=== PATIENT | female | born 1950 | race Caucasian/White ===

== ENCOUNTER → 2017-11-11 00:39 | Outpatient (CLI) | payer OTHER, SELFPAY ==
--- NOTE | 2017-11-11 13:08 | DI.REPORT_ITS ---
SYMPTOMS/DIAGNOSIS: SCREENING, Z12.31 MAMMOGRAMS: Mammograms were interpreted according to the usual protocol including computer analysis with CAD system, tomosynthesis and C view imaging. Comparison is with the prior examinations. No masses or microcalcifications are seen. There is nothing to suggest malignancy. IMPRESSION: Negative mammogram. Routine screening is recommended. Category 1 , breast density C. MQSA ASSESSMENT OF FINDINGS: Negative. Category 1. Patient will receive a letter notifying them of these results. Bi-RADS category C. The breasts are heterogeneously dense, which may obscure small masses.
--- NOTE | 2017-11-11 13:56 | DI.REPORT_ITS ---
SYMPTOMS/DIAGNOSIS: MENOPAUSE, Z78.0 DEXA SCAN: Routine examination. The lateral view of the spine shows no compression deformities. Evaluation of the left hip shows a total T score of -0.9 and a Z score of 0.4. Evaluation of the lumbar spine shows a total T score of -0.2 and a Z score of 1.7; these are within normal limits. No evidence of osteoporosis or osteopenia is present. IMPRESSION: No evidence of osteoporosis.
== END ==
PROVIDERS: PCP Family Medicine; Visit Provider Family Medicine
DX: Z13.820 Encounter for screening for osteoporosis (principal); Z78.0 Asymptomatic menopausal state; Z12.31 Encounter for screening mammogram for malignant neoplasm of breast
CPT/HCPCS: 77063; 77067; 77080

== ENCOUNTER 2018-07-06 09:53 | Outpatient (CLI) | payer OTHER, SELFPAY ==
--- NOTE | 2018-07-06 09:39 | DI.RAD_ITS ---
SYMPTOMS/DIAGNOSIS: F/U RIGHT TOTAL KNEE ARTHROPLASTY; LEFT KNEE PAIN, RIGHT KNEE: Two views were obtained and show total knee joint replacement in position. Components appear well seated. No other bony abnormality seen. LEFT KNEE: Three views were obtained. There is narrowing of the medial tibiofemoral cartilaginous joint space. Marked narrowing of the patellofemoral cartilaginous joint space noted as well. There are very prominent hypertrophic changes of the bones of the knee on a degenerative basis. CONCLUSION: Severe DJD of the knee.
== END 2018-07-06 10:13 ==
PROVIDERS: PCP Family Medicine; Visit Provider Student in an Organized Health Care Education/Training Program
DX: M25.562 Pain in left knee (principal); M17.12 Unilateral primary osteoarthritis, left knee; Z96.651 Presence of right artificial knee joint
CPT/HCPCS: 73562; 73560

== ENCOUNTER 2019-06-28 16:58 | Emergency (ER) | payer OTHER, SELFPAY ==
--- NOTE | 2019-06-28 17:00 | ED.GENADUL_ITS ---
Discharge Plan Disposition Patient Disposition: HOME Condition: Good Discharge Details Chief Complaint: Vascular Clinical Impression: Bilateral pulmonary embolism, Acute deep vein thrombosis (DVT) of left lower extremity Primary Care Provider: Edelmira Lara ED Provider: Nazia Rodriguez Home Meds and New Rx's Prescriptions: New Eliquis 5 mg tablet 5 mg PO BID Qty: 60 RF: 0 Continued multivitamin [Daily Multi-Vitamin] 1 EACH tablet 1 ea PO DAILY RF: 0 Emergen-C 1,000 mg Powder Effervescent In Packet 1 mg PO DAILY RF: 0 cholecalciferol (vitamin D3) [Vitamin D3] 25 mcg (1,000 unit) Tablet,Chewable 1 unit PO DAILY RF: 0 Discontinued aspirin [Aspir-81] 81 MG tablet,delayed release (DR/EC) 81 mg PO DAILY RF: 0 Discharge Instructions Instructions: Apixaban (By mouth), Pulmonary Embolism (GEN), Deep Venous Thrombosis (ED) Additional Instructions: You have bilateral pulmonary emboli. You need to be anticoagulated on Eliquis. You will receive tonight's dosing. You have been given dosing for tomorrow morning. You will need to take of the remaining of the prescription follow as instructed. Please do not take anti-inflammatories while on the anticoagulation medication. Please contact your primary care first thing tomorrow morning to schedule follow-up appointment soon as possible. I have ordered an outpatient echocardiogram as well as left lower extremity DVT study. We have discussed risks and/or benefits of inpatient versus outpatient treatment. You are to monitor closely at home for any new or worsening symptoms and seek care urgently if you develop shortness of breath, difficulty breathing, chest pain, weakness, strokelike symptoms, or other new/worsening symptoms. Referrals: Edelmira Lara [Primary Care Provider] - Discharge Data Discharge Date/Time-TO BE ENTERED AT DEPARTURE: 06/28/19 22:25 Medical Decision Making Patient is a pleasant 69-year-old female presenting today with chief complaint of left lower extremity pain x4 days and cough x1 month. She states that she has had a URI x 1 month. Was concerned that she may have developed pneumonia based on the length of symptoms. She states that throughout this time, she has been having dyspnea with exertion. However, in recent days this has been improving. reports T max of 100.4*F 3 days ago. No fever today. Denies any CP. States that cough has been nonproductive. Denies recent travel, no known sick contacts. Symptoms have been persistnet without any gaps. Patients left lateral foot began bothering her 4 days ago after period of being sedentary. She finds that prolonged sitting makes symptoms worse and they are alleviated by movement. She states that the pain has now radiated up the posterior aspect of the LLE into the medial thigh. Denies trauma. Denies opening in the skin. On exam, patient has normal HEENT exam, lungs are clear. No abnormalities noted on cardiac exam. LLE is slightly swollen circumfrentially. No edema. 2+ distal pulses. She has no discomfort elicited on exam. No erythema, warmth. No palpable cord. Patients lower extremity exam has me concerned for DVT although she her history is not typical. At this time, unable to obtain US, will screen with d-dimer. Her URI symptoms sound to be improving. As this has been going on for over one month, will obtain cxr. FINDINGS: Lungs: The lungs appears slightly expanded. No consolidation is seen. Pleural space: Unremarkable. No pleural effusion. No pneumothorax. Heart/Mediastinum: Unremarkable. No cardiomegaly. Bones/joints: Left acromioclavicular joint degenerative changes are noted. IMPRESSION: Slightly expanded lung bernal without evidence of consolidation. Patient's d-dimer is notably elevated over 7500. I am questioning now if this patient's cough and shortness of breath that is been ongoing for the past month may in fact be related to an embolus and not URI with subsequent DVT in the left lower extremity. I do feel that CT for PE would be appropriate. Consulted with radiologist regarding patients CT, she notes bilateral significant PE. Discussed this with the patient. She is now reporting that she is familial history of MTHFR gene mutation although she has never personally had DVT or PE. EKG was reviewed by Dr. Chopra. This is concerning for poor R wave progression which may be associate with the patient's known PE. Patient is otherwise normal sinus rhythm with a rate of 72. Initially, without the EKG, I had been considering this patient home based on Hestia criteria. However, with this EKG change, I am concerned that she may need inpatient management. Discussed with patient inpatient versus outpatient admission particularly as we are now seeing patients with COVID in the community and she is concern for possible exposure. She does live locally and is able to return urgently if she has worsening symptoms. We will begin the patient on Eliquis. Plan to obtain troponin and reassess what patient's preferences at this time for inpatient admission versus discharge with prompt follow-up. Initial troponin is less than 0.05. Symptoms have been going on for a month. Do not feel that repeat is necessary. Will consult with hospitalist regarding possible admission versus outpatient therapy. Patient has received 10 mg of Eliquis. Consulted with Dr. Monte. We discussed again the patients dilema of inpatient vs. outpatient management. He advised that as we are likely able to get outpatient echo and LLE DVT study soon, and as there is no hemodynamic instability of the patient, she could be treated as an outpatient. At this point, he advised that inpatient management would not change the current plan. Discussed this again with [facility] patient. I am concerned and advised that typically we would be requesting inpatient management. However, given the current state of affairs patient prefers discharge. She lives locally, is very reassonable, responsible and has good insight. She was given dosing for Eliquis tonight, will be discharged home with morning dosing. I have asked for prompt outpatient echo and LLE DVT US. Have asked the patient to call PCP tomorrow morning to schedule follow up appointment as soon as possible. Shew as given very strict return precautions. All of her questions and concerns were addressed, she is in agreement with this plan. HPI General Mode of arrival: ambulatory . Date/Time Provider Initiated Documentation: 06/28/19 16:59 . Limitations to Documentation: no limitations . Information obtained by: patient and RN notes reviewed . History of Present Illness 69 year old F presents to the emergency department with the chief complaint of left lower extremity pain, URI symptoms, described as moderate, Quality is described as aching, and is localized to the left and lower extremity. Patient reports no radiation. Patient started experiencing this day(s) (LLE pain began 4 days ago, URI began 1 month ago) and it has been constant. Movement improves symptom(s), Immoblization worsens symptoms . Patient notes cough, fever/chills (t max 100.4 2 days ago) and shortness of breath (with exertion, improving recently); denies chest pain, headaches, loss of appetite, nausea/vomiting, rash and weakness. Patient did receive the following treatments prior to arrival, none Related Data Home Medications Medication Instructions Recorded Confirmed multivitamin [Daily Multi-Vitamin] 1 ea PO DAILY 07/06/15 06/28/19 Emergen-C 1 mg PO DAILY 06/28/19 06/28/19 apixaban [Eliquis] 5 mg PO BID #60 tab 06/28/19 cholecalciferol (vitamin D3) 1 unit PO DAILY 06/28/19 06/28/19 [Vitamin D3] Previous Rx's Medication Instructions Recorded apixaban [Eliquis] 5 mg PO BID #60 tab 06/28/19 Allergies Allergy/AdvReac Type Severity Reaction Status Date / Time No Known Allergies Allergy Unverified 06/28/19 17:27 Review of Systems Constitutional Constitutional: Reports as per HPI, Reports fatigue, Reports fever(s) and Denies headache(s) Eyes Eyes: Reports as per HPI, Denies eye discharge and Denies irritation ENT Ears, Nose, Mouth, and Throat: Reports as per HPI and Denies headache(s) Cardiovascular Cardiovascular: Reports as per HPI, Denies chest pain, Denies chest pain at rest, Denies chest pain with activity, Denies syncope, Denies edema, Reports leg edema, Denies lightheadedness, Denies radiating jaw, neck or arm pain, Denies dyspnea, Reports dyspnea on exertion, Denies orthopnea and Denies paroxysmal nocturnal dyspnea Respiratory Respiratory: Reports as per HPI, Denies chest congestion, Reports cough, Denies hemoptysis, Denies pain on inspiration, Denies pain with cough, Denies dyspnea, Reports dyspnea on exertion and Denies wheezing Gastrointestinal Gastrointestinal: Reports as per HPI, Denies abdominal pain, Denies change in bowel habits, Denies nausea and Denies vomiting Integumentary/Breasts Skin/Breast: Reports as per HPI and Denies rash Neurologic Neurologic: Reports as per HPI, Denies syncope and Denies headache(s) Endocrine Endocrine: Reports fatigue Allergic/Immunologic Allergic/Immunologic: Denies wheezing PFSH Social History Smoking/Tobacco Use Status: Never Alcohol Intake: never Drug use: Never Substance use type: does not use Do you feel safe at home: Yes Do you feel safe in your relationship?: Yes Exam Const General: cooperative, healthy appearing, comfortable, no acute distress, well developed and well groomed Nutritional Appearance: average body habitus and well nourished Orientation: alert and awake [facility] Head: normal to inspection, normocephalic and atraumatic Ears: hearing grossly normal bilaterally, external ears normal and TM's normal bilaterally General nose exam: external nose normal and nares normal Face and sinus: normal facial exam, sinuses nontender and face symmetric Mouth: oral mucosae normal, lip normal, tongue normal, oropharynx normal and moist mucous membranes Teeth and gingiva: dentition normal Throat: posterior oropharynx normal, tonsils normal and uvula midline Eyes General: appearance normal, both eyes and all related structures Neck Neck: normal visual inspection, full ROM, no lymphadenopathy and no meningeal signs Resp Effort & Inspection: normal respiratory effort, able to speak in complete sentences and no respiratory distress Auscultation: clear to auscultation bilaterally, no rales, no rhonchi and no wheezes Cardio Rate: regular rate Rhythm: regular rhythm Heart Sounds: S1 normal and S2 normal GI Inspection: normal to inspection Palpation: soft, no hepatosplenomegaly, not rigid and nontender Skin General skin exam: no rashes or lesions noted Neuro General: patient alert and patient awake Cognition: normal cognition Speech: speech normal Gait: normal gait Extrem General: full ROM, capillary refill normal, no pedal edema, no calf tenderness, normal gait and other (2+ distal pulses, generalized swelling of LLE compared to contralateral baldev) Psych Appearance: grossly normal and well kempt Mental Status: mental status grossly normal Speech and Movement: speech and movement normal
[2019-06-28 17:17] VITALS: BP 150/93; PULSE 86; RESP 16; O2SAT 98
--- NOTE | 2019-06-28 17:45 | DI.RAD_ITS ---
EXAM: CT CHEST PE CTA CLINICAL HISTORY: elevated d-dimer, SOB, elevated dimer TECHNIQUE: Axial CT angiography was performed with multi-slice acquisition and multi-planar and/or 3 D reconstructions. COMPARISON: XR PORTABLE CHEST AP from 06/28/2019 FINDINGS: CT angiography of the chest and portable AP chest were obtained. The portable film of the chest show s cardiac size at the upper limits of and generally clear lungs. CTA was performed with intravenous infusion of 80 cc of Omnipaque 350. Images obtained through the u pper abdomen show a 24 millimeter in diameter rounded homogeneous right adrenal mass measuring 0-5 Ho unsfield units average, consistent with benign process. Visualized liver and spleen are unremarkable . There are multiple pulmonary emboli involving predominantly lower lobe pulmonary arteries and also di stal right main pulmonary artery and right middle lobe pulmonary artery. Vaguely nodular pleural bas ed opacities noted at the right lung base, these may represent small pulmonary infarcts, other etiolo gies not excluded including infectious or neoplastic process. Follow-up chest CT requested following treatment to document the resolution of these areas of pulmonary abnormality. Otherwise lungs appear clear with mild mosaic attenuation. No mediastinal or hilar adenopathy. Trac heobronchial tree appears intact. IMPRESSION: Bilateral pulmonary embolic disease with moderate clot burden, suspect peripheral pulmonary infarcts right lung base. Follow-up chest CT requested to exclude underlying disease including neoplastic pro cess.
[2019-06-28 18:16] LABS: Abs Immature Grans 0.02 k/cumm (0.0-0.09); Absolute Basophil Count 0.01 k/cumm (0.0-0.2); Absolute Lymphocyte Count 2.09 k/cumm (1.2-3.4); Absolute Neutrophil Count 7.84 k/cumm (1.2-6.7); Basophils % 0.1; Eosinophils % 0.9; HCT 37.3 % (36.0-46.0); HGB 12.7 g/dL (12.0-15.5); Immature Grans % 0.2 %; Lymphocytes % 19.2; Mean Corpuscular Volume 85.2 fL (80-95); Mean Platelet Volume 9.4 fL (8.0-11.0); Monocytes % 7.5; Neutrophils % 72.1; Platelet Count 217 x1000/uL (130-400); RBC 4.38 m/cumm (4.00-5.20); RBC Distribution Width 13.3 % (11.7-14.6); White Blood Cell Count 10.87 k/cumm (4.4-10.8)
[2019-06-28 18:17] LABS: Absolute Monocyte Count 0.82 k/cumm (0.11-0.7)
--- NOTE | 2019-06-28 18:26 | DI.VRAD_ITS ---
PROCEDURE INFORMATION: Exam: XR Chest, 1 View Exam date and time: 06/28/2019 6:16 PM Age: 69 years old Clinical indication: Patient HX: Cough x 1 month TECHNIQUE: Imaging protocol: XR of the chest Views: 1 view. COMPARISON: CR CHEST 2 VIEWS PA,LAT 07/03/2014 3:54 PM FINDINGS: Lungs: The lungs appears slightly expanded. No consolidation is seen. Pleural space: Unremarkable. No pleural effusion. No pneumothorax. Heart/Mediastinum: Unremarkable. No cardiomegaly. Bones/joints: Left acromioclavicular joint degenerative changes are noted. IMPRESSION: Slightly expanded lung bernal without evidence of consolidation. Dictated and Authenticated by: Susanne Sharma MD. Ordering:JOSE Mandujano MD
[2019-06-28 18:29] LABS: INR 1.1 (0.9-1.1); PTT Activated 25.2 sec (21.0-31.4); Prothrombin Time 10.9 sec (9.3-11.0)
[2019-06-28 18:32] LABS: ALT 20 U/L (14-59); AST 14 U/L (15-37); Albumin 3.5 g/dL (3.4-5.0); Alkaline Phosphatase 77 U/L (46-116); Anion Gap 8.6 mmol/L (3-11); BUN 15 mg/dL (7-18); Bilirubin, Total 0.5 mg/dL (0.2-1.0); CO2 27.4 mmol/L (21.0-32.0); CREATININE 0.84 mg/dL (0.55-1.02); Calcium 8.7 mg/dL (8.5-10.1); Chloride 100 mmol/L (98-107); Glucose 109 mg/dL (74-106); Potassium 3.8 mmol/L (3.5-5.1); Sodium 136 mmol/L (136-145); Total Protein 7.6 g/dL (6.4-8.2)
[2019-06-28 18:46] LABS: D-Dimer > 7500 ng/mlFEU (<500)
[2019-06-28] MEDS: Omnipaque 350 MG/ML 100 ML BTL IJ (19:41)
[2019-06-28] MEDS: Normal Saline 1,000 ML 1000 ML IV (20:14)
--- NOTE | 2019-06-28 20:35 | DI.VRAD_ITS ---
PROCEDURE INFORMATION: Exam: CT Angiography Chest With Contrast Exam date and time: 06/28/2019 7:56 PM Age: 69 years old Clinical indication: Abnormal findings; Abnormal diagnostic tests; Elevated d-dimer; Shortness of breath; Patient HX: Elevated d dimer, SOB TECHNIQUE: Imaging protocol: Computed tomographic angiography of the chest with intravenous contrast. 3D rendering: MIP and/or 3D reconstructed images were created by the technologist. COMPARISON: CR XR PORTABLE CHEST AP 06/28/2019 6:08 PM FINDINGS: Pulmonary arteries: There are filling defects seen in the distal right main pulmonary artery and extending into the upper and lower lobe branches. Filling defects are also seen in the left lower lobe pulmonary arterial branches. Aorta: Unremarkable. No aortic aneurysm. No aortic dissection. Thyroid: Hypodense nodules are seen in the bilateral thyroid glands measuring up to 1.2 cm on the right. Lungs: A 1.5 cm nodular opacity is seen in the right lung base. There is a mosaic attenuation of the lung bernal, which may be related to pulmonary emboli. Pleural space: Unremarkable. No pneumothorax. No pleural effusion. Heart: Unremarkable. No cardiomegaly. No pericardial effusion. Adrenals: A 2.4 cm hypodense nodule is seen in the right adrenal gland, which may represent an adrenal adenoma. Lymph nodes: Unremarkable. No enlarged lymph nodes. Bones/joints: Unremarkable. No acute fracture. Soft tissues: Unremarkable. IMPRESSION: 1. Extensive bilateral pulmonary emboli predominantly on the right and involving the distal main right pulmonary artery. 2. 1.5 cm nodular opacity in the right lung base could be secondary to a pulmonary parenchymal infarct. However malignancy is not excluded. Correlate with prior imaging and close interval follow-up. 3. 2.4 cm hypodense nodule in the right adrenal gland may represent an adrenal adenoma. THIS REPORT CONTAINS FINDINGS THAT MAY BE CRITICAL TO PATIENT CARE. The findings were verbally communicated via telephone conference with SANKET SMITH at 8:16 PM EDT on 06/28/2019. The findings were acknowledged and understood. Dictated and Authenticated by: Susanne Sharma MD. Ordering:JOSE Mandujano MD
[2019-06-28 21:09] LABS: Troponin I < 0.05 ng/Ml (<0.06)
[2019-06-28] MEDS: Apixaban 5 MG TAB 10 MG PO ×2 (21:23→22:00)
== END 2019-06-28 22:25 | disposition home or self-care (01) ==
LOC: ER 22:10
PROVIDERS: Emergency Provider Physician Assistant; PCP Family Medicine
DX: I26.99 Other pulmonary embolism without acute cor pulmonale (principal); I82.402 Acute embolism and thrombosis of unspecified deep veins of left lower extremity; R05 Cough; R06.02 Shortness of breath
CPT/HCPCS: 36415; 71275; 80053; 93005; 96360; 99285; 71045; 84484; 85025; 85379; 85610; 85730; 93010; 99284; J3490

== ENCOUNTER 2019-06-29 08:42 | Outpatient (CLI) | payer OTHER, SELFPAY ==
--- NOTE | 2019-06-29 | DI.US_ITS ---
EXAM: US LOWER EXTREMITY VENOUS LT CLINICAL HISTORY: LT LEG SWELLING, BILAT PE TECHNIQUE: Ultrasound performed using standard protocol. COMPARISON: US ECHOCARDIOGRAM from 06/29/2019 FINDINGS: Duplex venous ultrasound left lower extremity was performed according to the usual protocol. There i s visible thrombus and noncompressibility indicating DVT of the mid left femoral vein through the dis linda posterior tibial vein. IMPRESSION: Occlusive left DVT from level of mid thigh through the distal calf. DATA REPOSITORY:
--- NOTE | 2019-06-29 10:01 | DI.US_ITS ---
APPROVED REPORT EXAM: Comprehensive 2D, Doppler, and color-flow Echocardiogram Patient Location: Out-Patient [facility] Raiser: Anahi Randhawa RDCS (AE) Indications: Abnormal EKG, PE Conclusion Left Ventricle : The left ventricle is normal size. The left ventricular systolic function is normal. The left ventricular ejection fraction is within the normal range. There is normal left ventricular wall thickness. There is normal LV segmental wall motion. The left ventricular diastolic function is normal. LVEF is 55-60%. Right Ventricle : The right ventricle is normal size. The right ventricular systolic function is norm al. There is no evidence of RV pressure overload. Atria : The left atrium size is normal. The right atrium size is normal. Great Vessels : IVC is normal in size and collapses >50% with inspiration. Not enough tricuspid regu rgitation to estimate RVSP. Please see remainder of exam for further details. There are no prior studies available for comparison. Wall motion Left Ventricle The left ventricle is normal size. The left ventricular systolic function is normal. The left ventric ular ejection fraction is within the normal range. There is normal left ventricular wall thickness. T here is normal LV segmental wall motion. The left ventricular diastolic function is normal. There is no ventricular septal defect visualized. LVEF is 55-60%. Right Ventricle The right ventricle is normal size. The right ventricular systolic function is normal. Atria The left atrium size is normal. The right atrium size is normal. The interatrial septum is intact wit h no evidence for an atrial septal defect. Aortic Valve The aortic valve is normal in structure. Aortic valve is trileaflet. There is no aortic valvular sten osis. Trace aortic regurgitation. Mitral Valve The mitral valve is normal in structure. No evidence of mitral valve stenosis. Trace mitral regurgita tion. Tricuspid Valve The tricuspid valve is normal in structure. There is no tricuspid valve stenosis. Trace tricuspid reg urgitation. Pulmonic Valve The pulmonary valve is normal in structure. There is no pulmonic valvular stenosis. There is no pulmo krystian valvular regurgitation. Great Vessels The aortic root is normal in size. The pulmonary artery is normal. Ascending aorta is mildly enlarged . Aortic arch is normal in caliber. IVC is normal in size and collapses >50% with inspiration. Not en ough tricuspid regurgitation to estimate RVSP. Pericardium There is no pericardial effusion. There is no pleural effusion. 2D Dimensions IVSD d PLAX 0.99 cm F: 0.6-1.0 LV Vol A2C d MOD 121.5 mL LVPW d PLAX 0.90 cm F: 0.6 - 1.0 LV Vol A4C d MOD 110.7 mL LVID d PLAX 4.29 cm F: 3.8 - 5.2 LA vol/ BSA A2C s A-L 33.9 mL/m2 LVDs 3.00 cm F: 2.2 - 3.5 LA vol/ BSA A4C s A-L 32.4 mL/m2 Ao Root d 2.59 cm F: 2.7 - 3.3 LA Vol/ BSA Biplane s A-L 33.8 mL/m2 RA Area A4C 19.59 cm2 LA Area A4C s MOD 21.53 cm2 RA Vol/ BSA A4C s A-L 31.3 mL/m2 LA Area A2C s MOD 21.60 cm2 Ao Asc Diam d 3.74 cm F: 2.3 - 3.1 LV EF A4C MOD 55.2 % LV EF Teichholz 57.1 % LV EF A2C MOD 58.7 % LVEF (Gordillo's) 55.84 % F: 54 - 74 LV EF Biplane MOD 55.8 % LV Volume 87.41 mL F: 46 - 106 LV Volume Index 43.70 mL/m2 F: 29 - 61 LV Vol Biplane MOD 116.5 mL FS 29.70 % M-Mode TAPSE 1.90 cm (M/F) <1.7 LV Diastology MV E' medial 0.114 (>0.07 m/s) E/A Ratio 1.0 LV E/e MED 5.25 (<14) MV E Vmax 0.61 (0.4-1.3 m/s) MV E' lateral 0.114 (>0.1 m/s) MV A Vmax 0.60 (0.4-1.3 m/s) LV E/e LAT 5.25 (<14) MV E/A Ratio 0.96 MV E/E' medial 5.30 MV E/E' lateral 5.30 Aortic Valve LVOT Area 3.73 cm2 AoV Area Vmax 2.73 cm2 LVOT Vmax 1.15 m/s AoV Area/ BSA (Vmax) 1.36 cm2/m2 LVOT Mean Ángel. 0.79 m/s CARSON Mean Ángel. 2.30 cm2 LVOT Peak Grad 5.3 mmHg CARSON Mean Ángel. Index 1.15 cm2/m2 LVOT Mean Grad 2.8 mmHg AR DT 1248 msec LVOT VTI 0.219 m AR PHT 362 msec LVOT Diam s 2.15 cm (M/F) 1.5-2.5 AoV Vmax 1.57 (0.5-1.3 m/s) Velocity Ratio 0.73 AoV Mean Ángel. 1.27 m/s AoV Peak Grad 9.9 mmHg LVOT SV 81.62 mL AoV Mean Grad 6.9 (<5 mmHg) AoV VTI 0.333 (0.18-0.25 m) AoV Area VTI 2.45 (2.5-4.5 cm2) AoV Area/ BSA (VTI) 1.23 cm/m2 Mitral Valve MV DT 286 (160-240 msec) MV PHT 83 msec MV Area PHT 2.65 cm2 MV VTI 0.204 m MV Area VTI 4.00 (4.0-6.0 cm2) Pulmonary Valve PV Vmax 1.15 (0.5-1.5 m/s) RVOT Peak Gr. 2.19 mmHg PV Peak Grad 5.3 mmHg RVOT Mean Gr. 1.15 mmHg PV Mean Grad 2.9 mmHg RVOT VTI 0.167 m PV VTI 0.231 m RVOT Vmax 0.74 m/s
== END 2019-06-29 09:02 ==
PROVIDERS: PCP Family Medicine; Visit Provider Physician Assistant
DX: R22.42 Localized swelling, mass and lump, left lower limb (principal); I82.412 Acute embolism and thrombosis of left femoral vein; I82.442 Acute embolism and thrombosis of left tibial vein; R94.31 Abnormal electrocardiogram [ECG] [EKG]
CPT/HCPCS: 93306; 93971

== ENCOUNTER 2019-07-16 06:44 | Inpatient (IN) | payer OTHER, SELFPAY ==
[2019-07-16] VITALS (27 sets, daily range): BP systolic 157–199; BP diastolic 71–98; PULSE 52–85; RESP 7–27; TEMP 36.6–37; O2SAT 95–100
--- NOTE | 2019-07-16 06:58 | ED.GENADUL_ITS ---
Discharge Plan Disposition Patient Disposition: [facility] INPATIENT Condition: Stable Discharge Details Chief Complaint: Abd Prob Clinical Impression: Small bowel obstruction Admit Date/Time: 07/16/19 08:56 Admit Provider: Tamika Slade Attending Provider: Tamika Slade Primary Care Provider: Edelmira Lara ED Provider: Lorene Holland Discharge Data Discharge Date/Time-TO BE ENTERED AT DEPARTURE: 07/16/19 09:45 Medical Decision Making <Javi Robins DO - Last Filed: 07/17/19 06:48> Pleasant 69-year-old female who was recently diagnosed with bilateral PEs last month, is currently on Eliquis, who presents today for evaluation of abdominal pain that started slightly less than 12 hours ago. Pain is crampy in nature, worse in the epigastric region. She has had associated vomiting and retching. She denies blood in her stool or emesis. She has no previous abdominal surgeries. She denies any tearing or ripping or chest sensation. Physical exam demonstrates a notably diffusely tender abdomen, worse in the epigastric regions, no pulsatile mass, lower extremity pulses and capillary refill are notably benign and normal. Differential is highest for cholecystitis, pancreatitis, less likely cardiac etiology or vascular etiology. Due to the patient's symptoms we will get a CT scan of the chest and abdomen, rehydrate, control her pain, monitor closely. Case will be signed out to my col league Dr. Lorene Holland for reassessment after imaging and labs. EKG 7: 10 Rate 55, ME 166, QTc 42, QRS 96, sinus bradycardia, no significant ST elevations or depressions, no evidence of STEMI. <Lorene Holland DO - Last Filed: 07/16/19 14:45> 0800 --please see Dr. Robins's note for initial presentation, exam and plan. CT notes small bowel obstruction with dilated proximal small bowel loops. Pt reassessed --she is complaining of return of pain and nausea. She was dry heaving in the room. She has lower abdominal tenderness. Patient is agreeable to admission. We will give a dose of Dilaudid, Compazine, additional IV fluids and plan for NG tube. 0850 --Case discussed with Dr. Slade --accepts patient for admission. Medical Records Medical records reviewed: Yes I reviewed the patient's medical records. Imaging Data Radiologic Study: Radiologist's impression: CT CHEST/ABD/PEL W CLINICAL HISTORY: severe epigastric pain, vomit/wretching, known PE' TECHNIQUE: Axial CT angiography was performed with multi-slice acquisition and multi-planar and/or 3D reconstructions. FINDINGS: CT examination of the chest, abdomen, and pelvis was performed with a bolus infusion of 100 cc of Omnipaque 350. The patient had recent chest CT 06/28/2019 which showed multiple pulmonary emboli. On today's examination, there is no evidence of pulmonary embolus. The lungs are generally clear. Tracheobronchial tree appears intact. Minimal linear scarring noted in the lung bases. No pleural effusion. No mediastinal or hilar adenopathy. Unremarkable appearance of the thoracic aorta and major branches. There is a hepatic mass which was not appreciated on early phase arterial imaging on the prior examination, this measures about 5 cm in diameter and is of low attenuation with apparent early peripheral nodular enhancement, the findings are suggestive of hepatic hemangioma, other etiologies not excluded on the basis of this study alone. Follow-up multiphasic hepatic CT or MRI recommended to confirm this diagnosis. No biliary dilatation seen. Pancreas appears normal. Spleen appears normal. Small likely benign right adrenal mass again noted. Kidneys are unremarkable, no urinary tract calcification or obstruction. Abdominal aorta and major branches appear normal. Appendix is normal. No evidence of diverticulitis. [employer] structures unremarkable for age. No abdominal or pelvic adenopathy. There is marked proximal to mid small bowel dilatation with normal caliber of the small bowel distally, the findings are highly suggestive of a small bowel obstruction. A definitive transition point is not identified but I suspect transition point in the pelvis associated with a few thick walled loops of small bowel. No free air. Mild to moderate ascites noted. IMPRESSION: Findings highly suggestive of small-bowel obstruction as described above. No evidence of pulmonary embolic disease or other significant intrathoracic process. Incidental right lobe posterior segment hepatic mass, likely hemangioma, follow- up multiphasic hepatic CT recommended to confirm this diagnosis and exclude malignancy. Lab Data Lab results reviewed: Yes I reviewed the patient's lab results. Labs: Laboratory Tests Range/Units 07/16/19 07/16/19 07/16/19 06:58 06:58 06:58 WBC (4.4-10.8) k/cumm 13.16 H RBC (4.00-5.20) m/cumm 5.27 H Hgb (12.0-15.5) g/dL 15.0 Hct (36.0-46.0) % 43.5 MCV (80-95) fL 82.5 MCH (27.0-33.0) pg 28.5 MCHC (32.0-36.0) g/dL 34.5 RDW (11.7-14.6) % 13.8 Plt Count (130-400) x1000/uL 303 MPV (8.0-11.0) fL 9.7 Immature Gran % % 0.2 Neutrophils % 89.7 Lymphocytes % 8.4 Monocytes % 1.6 Eosinophils % 0.0 Basophils % 0.1 Absolute Neutrophils (1.2-6.7) k/cumm 11.80 H Absolute Lymphocytes (1.2-3.4) k/cumm 1.11 L Absolute Monocytes (0.11-0.7) k/cumm 0.21 Absolute Eosinophils (0.0-0.7) k/cumm 0.00 Absolute Basophils (0.0-0.2) k/cumm 0.01 PT (9.3-11.0) sec INR (0.9-1.1) APTT (21.0-31.4) sec Sodium (136-145) mmol/L 137 Potassium (3.5-5.1) mmol/L 3.4 L Chloride (98-107) mmol/L 98 Carbon Dioxide (21.0-32.0) mmol/L 23.8 Anion Gap (3-11) mmol/L 15.2 H BUN (7-18) mg/dL 15 Creatinine (0.55-1.02) mg/dL 0.95 Estimated GFR/1.73 m2 (mL/min/1.73m2) 58.50 Glucose (74-106) mg/dL 208 H Lactate (0.6-1.4) mmol/L 2.9 H* Calcium (8.5-10.1) mg/dL 9.6 Total Bilirubin (0.2-1.0) mg/dL 0.7 AST (15-37) U/L 21 ALT (14-59) U/L 27 Alkaline Phosphatase (46-116) U/L 77 Troponin I (<0.06) ng/Ml < 0.05 Total Protein (6.4-8.2) g/dL 8.5 H Albumin (3.4-5.0) g/dL 4.2 Lipase (73-393) U/L 133 Urine Color (Yellow) Urine Clarity (Clear) Urine pH (5-8) Ur Specific [place] (1.005-1.025) Urine Protein (Negative) mg/dL Urine Ketones (Negative) mg/dL Urine Blood (Negative) Urine Nitrite (Negative) Urine Bilirubin (Negative) Urine Urobilinogen (Up TO 0.2) EU/dL Ur Leukocyte Esterase (Negative) Urine RBC (0-2) HPF Urine WBC (0-5) HPF Ur Epithelial Cells (Negative) HPF Urine Crystals (Negative) HPF Urine Bacteria Urine Mucus Ur Culture Indicated? Urine Glucose (Negative) mg/dL Range/Units 07/16/19 07/16/19 06:58 08:20 WBC (4.4-10.8) k/cumm RBC (4.00-5.20) m/cumm Hgb (12.0-15.5) g/dL Hct (36.0-46.0) % MCV (80-95) fL MCH (27.0-33.0) pg MCHC (32.0-36.0) g/dL RDW (11.7-14.6) % Plt Count (130-400) x1000/uL MPV (8.0-11.0) fL Immature Gran % % Neutrophils % Lymphocytes % Monocytes % Eosinophils % Basophils % Absolute Neutrophils (1.2-6.7) k/cumm Absolute Lymphocytes (1.2-3.4) k/cumm Absolute Monocytes (0.11-0.7) k/cumm Absolute Eosinophils (0.0-0.7) k/cumm Absolute Basophils (0.0-0.2) k/cumm PT (9.3-11.0) sec 10.6 INR (0.9-1.1) 1.1 APTT (21.0-31.4) sec 22.6 Sodium (136-145) mmol/L Potassium (3.5-5.1) mmol/L Chloride (98-107) mmol/L Carbon Dioxide (21.0-32.0) mmol/L Anion Gap (3-11) mmol/L BUN (7-18) mg/dL Creatinine (0.55-1.02) mg/dL Estimated GFR/1.73 m2 (mL/min/1.73m2) Glucose (74-106) mg/dL Lactate (0.6-1.4) mmol/L Calcium (8.5-10.1) mg/dL Total Bilirubin (0.2-1.0) mg/dL AST (15-37) U/L ALT (14-59) U/L Alkaline Phosphatase (46-116) U/L Troponin I (<0.06) ng/Ml Total Protein (6.4-8.2) g/dL Albumin (3.4-5.0) g/dL Lipase (73-393) U/L Urine Color (Yellow) Yellow Urine Clarity (Clear) Clear Urine pH (5-8) 7.5 Ur Specific [place] (1.005-1.025) 1.020 Urine Protein (Negative) mg/dL Negative Urine Ketones (Negative) mg/dL 40 H Urine Blood (Negative) Trace-intact H Urine Nitrite (Negative) Negative Urine Bilirubin (Negative) Negative Urine Urobilinogen (Up TO 0.2) EU/dL 0.2 Ur Leukocyte Esterase (Negative) Negative Urine RBC (0-2) HPF 3-5 H Urine WBC (0-5) HPF 0-2 Ur Epithelial Cells (Negative) HPF Rare Urine Crystals (Negative) HPF Moderate amorphous Urine Bacteria Not Applicable Urine Mucus Not Applicable Ur Culture Indicated? No Urine Glucose (Negative) mg/dL Negative HPI <Javi Robins DO - Last Filed: 07/17/19 06:48> General Date/Time Provider Initiated Documentation: 07/16/19 06:46 . HPI Narrative: This is a pleasant 69-year-old female with a past medical history of recently diagnosed pulmonary emboli bilaterally, currently on Eliquis, who presents today for epigastric pain. Patient states that at 8 PM last night which was 11 hours ago, she developed gradual onset epigastric pain which she describes as crampy in nature. Started in the left upper quadrant, and radiated to the right upper quadrant, subsequently throughout the night she has had multiple episodes of vomiting, but denies any blood. She denies any diarrhea. She denies pain like this in the past. She denies any previous abdominal surgeries. No particular aggravating or relieving factors. She denies numbness tingling or weakness. She denies cardiac disease, chest pain, tearing sensation in the chest, chest heaviness, tightness, pressure or bandlike sensation. She denies any other complaints at this time. No other modifying factors. Related Data Home Medications Medication Instructions Recorded Confirmed multivitamin [Daily Multi-Vitamin] 1 ea PO DAILY 07/06/15 07/16/19 Emergen-C 1 mg PO DAILY 06/28/19 07/16/19 apixaban [Eliquis] 5 mg PO BID #60 tab 06/28/19 07/16/19 cholecalciferol (vitamin D3) 1 unit PO DAILY 06/28/19 07/16/19 [Vitamin D3] Previous Rx's Medication Instructions Recorded apixaban [Eliquis] 5 mg PO BID #60 tab 06/28/19 Allergies Allergy/AdvReac Type Severity Reaction Status Date / Time No Known Allergies Allergy Unverified 06/28/19 17:27 General INDIRA: 3 Review of Systems <Javi Robins DO - Last Filed: 07/17/19 06:48> All systems reviewed & are unremarkable except as noted in HPI and below PFSH <Javi Robins DO - Last Filed: 07/17/19 06:48> Medical History Acute deep vein thrombosis (DVT) of left lower extremity (Inactive) Femur fracture, right (Acute) Pulmonary embolism (Chronic) Surgical History Status post total right knee replacement (Inactive) 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 3.ENT: Atraumatic external nose and ears. Moist MM. Neck: Symmetric, trachea midline, No thyromegaly. 4.CVS: +S1/S2, No murmurs or gallops. Peripheral pulses 2+ and equal in all extremities. Brisk capillary refill in all extremities. Dorsalis pedis and posterior tibial pulses equal bilaterally. 5.RESP: Unlabored respiratory effort. Clear to auscultation bilaterally. No wheezes rales or rhonchi 6.GI: Soft,Nondistended, No hepatosplenomegaly. Mild voluntary guarding for palpation of the upper abdominal quadrants. No rebound but definite tenderness diffusely throughout, worse in the upper regions. Secondary to patient's pain exam is made slightly more difficult. 7.MSK: Normocephalic/Atraumatic, Extremities w/o deformity or ttp No cyanosis or clubbing, Normal movement of all extremities 8.Skin: Warm, Dry. No rashes or lesions. 9.Neuro: production leader II-XII grossly intact. Sensation grossly intact, no focal neurologic deficits. 10.Psych: (AAO) x3. Appropriate mood and affect Sign Out <Javi Robins DO - Last Filed: 07/17/19 06:48> Sign Out Data: Sign Out Comment: Pending CT scan results and reassessment Last updated by Javi Robins DO at 07/16/19 07:53
[2019-07-16] MEDS: Ondansetron 4 MG/2 ML VIAL IVP ×2 (07:02→11:45)
[2019-07-16] MEDS: Normal Saline 1,000 ML 1000 ML IV (07:02)
[2019-07-16 07:10] LABS: Lactate 2.9 mmol/L (0.6-1.4)
--- NOTE | 2019-07-16 07:11 | NUR.NOTE ---
relayed to Dr. Shimon meeks lactate 2.9 07/16/2019 [facility] Note:
[2019-07-16 07:16] LABS: Abs Immature Grans 0.02 k/cumm (0.0-0.09); Absolute Basophil Count 0.01 k/cumm (0.0-0.2); Absolute Lymphocyte Count 1.11 k/cumm (1.2-3.4); Absolute Monocyte Count 0.21 k/cumm (0.11-0.7); Basophils % 0.1; HCT 43.5 % (36.0-46.0); Immature Grans % 0.2 %; Lymphocytes % 8.4; Mean Corp. HGB Concentration 34.5 g/dL (32.0-36.0); Mean Corpuscular Hemoglobin 28.5 pg (27.0-33.0); Mean Corpuscular Volume 82.5 fL (80-95); Mean Platelet Volume 9.7 fL (8.0-11.0); Monocytes % 1.6; Neutrophils % 89.7; Platelet Count 303 x1000/uL (130-400); RBC 5.27 m/cumm (4.00-5.20); RBC Distribution Width 13.8 % (11.7-14.6); White Blood Cell Count 13.16 k/cumm (4.4-10.8)
[2019-07-16 07:25] LABS: ALT 27 U/L (14-59); AST 21 U/L (15-37); Albumin 4.2 g/dL (3.4-5.0); Alkaline Phosphatase 77 U/L (46-116); Anion Gap 15.2 mmol/L (3-11); BUN 15 mg/dL (7-18); Bilirubin, Total 0.7 mg/dL (0.2-1.0); CO2 23.8 mmol/L (21.0-32.0); CREATININE 0.95 mg/dL (0.55-1.02); Calcium 9.6 mg/dL (8.5-10.1); Chloride 98 mmol/L (98-107); Glucose 208 mg/dL (74-106); INR 1.1 (0.9-1.1); Lipase 133 U/L (73-393); PTT Activated 22.6 sec (21.0-31.4); Potassium 3.4 mmol/L (3.5-5.1); Prothrombin Time 10.6 sec (9.3-11.0); Sodium 137 mmol/L (136-145); Total Protein 8.5 g/dL (6.4-8.2)
[2019-07-16 07:26] LABS: Troponin I < 0.05 ng/Ml (<0.06)
--- NOTE | 2019-07-16 07:59 | DI.CT_ITS ---
EXAM: CT CHEST/ABD/PEL W CLINICAL HISTORY: severe epigastric pain, vomit/wretching, known PE' TECHNIQUE: Axial CT angiography was performed with multi-slice acquisition and multi-planar and/or 3 D reconstructions. FINDINGS: CT examination of the chest, abdomen, and pelvis was performed with a bolus infusion of 100 cc of Om nipaque 350. The patient had recent chest CT 06/28/2019 which showed multiple pulmonary emboli. On today's examination, there is no evidence of pulmonary embolus. The lungs are generally clear. Trac heobronchial tree appears intact. Minimal linear scarring noted in the lung bases. No pleural effus ion. No mediastinal or hilar adenopathy. Unremarkable appearance of the thoracic aorta and major br anches. There is a hepatic mass which was not appreciated on early phase arterial imaging on the prior examin ation, this measures about 5 cm in diameter and is of low attenuation with apparent early peripheral nodular enhancement, the findings are suggestive of hepatic hemangioma, other etiologies not excluded on the basis of this study alone. Follow-up multiphasic hepatic CT or MRI recommended to confirm th is diagnosis. No biliary dilatation seen. Pancreas appears normal. Spleen appears normal. Small likely benign ri ght adrenal mass again noted. Kidneys are unremarkable, no urinary tract calcification or obstructio n. Abdominal aorta and major branches appear normal. Appendix is normal. No evidence of diverticul itis. [employer] structures unremarkable for age. No abdominal or pelvic adenopathy. There is marked proximal to mid small bowel dilatation with normal caliber of the small bowel distall y, the findings are highly suggestive of a small bowel obstruction. A definitive transition point is not identified but I suspect transition point in the pelvis associated with a few thick walled loops of small bowel. No free air. Mild to moderate ascites noted. IMPRESSION: Findings highly suggestive of small-bowel obstruction as described above. No evidence of pulmonary embolic disease or other significant intrathoracic process. Incidental right lobe posterior segment hepatic mass, likely hemangioma, follow-up multiphasic hepati c CT recommended to confirm this diagnosis and exclude malignancy.
[2019-07-16] MEDS: Normal Saline - Diluent 50 ML VIAL IV (08:16)
[2019-07-16] MEDS: Omnipaque 350 MG/ML 100 ML BTL IJ (08:17)
[2019-07-16 08:34] LABS: Bilirubin Negative (Negative); Blood Trace-intact (Negative); Clarity Clear (Clear); Glucose Negative (Negative); Ketones 40 mg/dL (Negative); Leukocyte Esterase Negative (Negative); Nitrite Negative (Negative); Urobilinogen 0.2 EU/dL (Up TO 0.2); pH 7.5 (5-8)
[2019-07-16 08:47] LABS: C & S Indicated? No; Crystals Moderate Amorphous HPF (Negative); Epithelial Cells Rare HPF (Negative); WBC 0-2 HPF (0-5)
[2019-07-16] MEDS: HYDROmorphone 2 MG/ML VIAL 0.5 MG IVP (09:23)
[2019-07-16] MEDS: Normal Saline 500 ML IV (09:24)
[2019-07-16] MEDS: Prochlorperazine 10 MG/2 ML VIAL IVP (09:24)
--- NOTE | 2019-07-16 09:50 | NUR.NOTE ---
Nursing Note: PT placed on 2lpm oxygen for comfort measures. Hypo active bowel sounds noted in all four quadrants. PT reports last BM was last night and was normal. PT care report transferred to Fun[facility] ([email or web address]) on [facility]. At the time of transfer the Pt is alert and oriented vitals stable. Pt transported by Rii[facility] (Justo) to room 206. Patients (Renny) notified of patient transfer and room assignment.
[2019-07-16] MEDS: Lactated Ringers 1,000 ML 125 ML IV ×2 (11:03→18:41)
[2019-07-16] MEDS: Normal Saline Flush 10 ML SYR IVP ×4 (11:24→18:42)
--- NOTE | 2019-07-16 11:55 | W.PM.HP.N ---
Date of service: 07/16/19 Time of Service: 11:55 Assessment and Plan Assessment and plan (1) Small bowel obstruction: Status: Acute Assessment and plan: The CT is reviewed and shows evidence of a mid small bowel obstruction with decompressed bowel distally. Will treat initially with NG placement, fluids, pain control. (2) Bilateral pulmonary embolism: Status: Acute Assessment and plan: Will change to Lovenox while hospitalized. Patient did not take her am dose of Eliquis. (3) Liver lesion: Status: Acute Assessment and plan: Will need follow up multiphasic hepatic CT after discharge History of Present Illness Narrative: This patient presented to the ER with abdominal pain and vomiting since last evening. She estimates vomiting 75 times. Bilious in appearance. Also passed gas with the vomiting and loose stool. Was feeling well up until yesterday with normal PO intake. No prior SBO. Colonoscopy done about 10 years ago. Recent history significant for LLE DVT and bilateral PE, is currently taking Eliquis. 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 Right TKA done September 2011 - [facility] – [place] Family History Mother DVT (deep venous thrombosis) Sister MTHFR gene mutation Social History Smoking/Tobacco Use Status: Never Alcohol Intake: never Drug use: Never Substance use type: does not use Do you feel safe at home: Yes Do you feel safe in your relationship?: Yes Meds Home Medications and Allergies Home Medications Medication Instructions Recorded Confirmed Type multivitamin [Daily Multi-Vitamin] 1 ea PO DAILY 07/06/15 07/16/19 History Emergen-C 1 mg PO DAILY 06/28/19 07/16/19 History apixaban [Eliquis] 5 mg PO BID #60 tab 06/28/19 07/16/19 Rx cholecalciferol (vitamin D3) 1 unit PO DAILY 06/28/19 07/16/19 History [Vitamin D3] Allergies Allergy/AdvReac Type Severity Reaction Status Date / Time No Known Allergies Allergy Unverified 06/28/19 17:27 Exam Narrative Exam Narrative: Appears uncomfortable Abdomen slightly distended, moderate generalized tenderness but no peritonitis. No hernia. Results Labs Result diagrams: 07/16/19 06:58 07/16/19 06:58 Labs: Laboratory Results - last 24 hr 07/16/19 07/16/19 07/16/19 06:58 06:58 06:58 WBC 13.16 H RBC 5.27 H Hgb 15.0 Hct 43.5 MCV 82.5 MCH 28.5 MCHC 34.5 RDW 13.8 Plt Count 303 MPV 9.7 Immature Gran % 0.2 Neutrophils % 89.7 Lymphocytes % 8.4 Monocytes % 1.6 Eosinophils % 0.0 Basophils % 0.1 Absolute Neutrophils 11.80 H Absolute Lymphocytes 1.11 L Absolute Monocytes 0.21 Absolute Eosinophils 0.00 Absolute Basophils 0.01 PT INR APTT Sodium 137 Potassium 3.4 L Chloride 98 Carbon Dioxide 23.8 Anion Gap 15.2 H BUN 15 Creatinine 0.95 Estimated GFR/1.73 m2 58.50 Glucose 208 H Lactate 2.9 H* Calcium 9.6 Total Bilirubin 0.7 AST 21 ALT 27 Alkaline Phosphatase 77 Troponin I < 0.05 Total Protein 8.5 H Albumin 4.2 Lipase 133 Urine Color Urine Clarity Urine pH Ur Specific [place] Urine Protein Urine Ketones Urine Blood Urine Nitrite Urine Bilirubin Urine Urobilinogen Ur Leukocyte Esterase Urine RBC Urine WBC Ur Epithelial Cells Urine Crystals Urine Bacteria Urine Mucus Ur Culture Indicated? Urine Glucose 07/16/19 07/16/19 06:58 08:20 WBC RBC Hgb Hct MCV MCH MCHC RDW Plt Count MPV Immature Gran % Neutrophils % Lymphocytes % Monocytes % Eosinophils % Basophils % Absolute Neutrophils Absolute Lymphocytes Absolute Monocytes Absolute Eosinophils Absolute Basophils PT 10.6 INR 1.1 APTT 22.6 Sodium Potassium Chloride Carbon Dioxide Anion Gap BUN Creatinine Estimated GFR/1.73 m2 Glucose Lactate Calcium Total Bilirubin AST ALT Alkaline Phosphatase Troponin I Total Protein Albumin Lipase Urine Color Yellow Urine Clarity Clear Urine pH 7.5 Ur Specific [place] 1.020 Urine Protein Negative Urine Ketones 40 H Urine Blood Trace-intact H Urine Nitrite Negative Urine Bilirubin Negative Urine Urobilinogen 0.2 Ur Leukocyte Esterase Negative Urine RBC 3-5 H Urine WBC 0-2 Ur Epithelial Cells Rare Urine Crystals Moderate amorphous Urine Bacteria Not Applicable Urine Mucus Not Applicable Ur Culture Indicated? No Urine Glucose Negative Last Vital Signs Temp 98.6 F 07/16/19 10:22 Pulse 59 L 07/16/19 10:22 Resp 18 07/16/19 10:22 BP 187/98 H 07/16/19 10:22 Pulse Ox 95 07/16/19 10:22 COVID-19 Screening Traveled to [place] from one of the affected countries or regions?: NO Recent travel in the [place] within the last 8 weeks?: No Recent out of the country travel within the last 8 weeks?: No Exposure or possible exposure to illness during travel?: No Had IN PERSON contact w/suspected or confirmed C-19 person: No Have you had the following symptoms in the past few days?: No Symptoms noted since travel?: No Symptoms
[2019-07-16] MEDS: Enoxaparin 80 MG/0.8 ML SYR SC (13:31)
[2019-07-16] MEDS: Ketorolac 15 MG/ML VIAL IV ×2 (13:31→23:13)
[2019-07-17] VITALS (12 sets, daily range): BP systolic 120–160; BP diastolic 70–85; PULSE 70–91; RESP 14–20; TEMP 36.3–37.8; O2SAT 92–100
[2019-07-17] MEDS: Lactated Ringers 1,000 ML 125 ML IV ×3 (01:40→13:11)
[2019-07-17] MEDS: Enoxaparin 80 MG/0.8 ML SYR SC (01:40)
[2019-07-17 06:47] LABS: Abs Immature Grans 0.07 k/cumm (0.0-0.09); Absolute Lymphocyte Count 1.43 k/cumm (1.2-3.4); Absolute Monocyte Count 1.28 k/cumm (0.11-0.7); Basophils % 0.1; HCT 43.5 % (36.0-46.0); HGB 14.7 g/dL (12.0-15.5); Immature Grans % 0.4 %; Lymphocytes % 7.7; Mean Corp. HGB Concentration 33.8 g/dL (32.0-36.0); Mean Corpuscular Hemoglobin 28.6 pg (27.0-33.0); Mean Corpuscular Volume 84.6 fL (80-95); Mean Platelet Volume 9.7 fL (8.0-11.0); Monocytes % 6.9; Neutrophils % 84.9; Platelet Count 275 x1000/uL (130-400); RBC 5.14 m/cumm (4.00-5.20); RBC Distribution Width 14.8 % (11.7-14.6); White Blood Cell Count 18.53 k/cumm (4.4-10.8)
[2019-07-17 06:51] LABS: Absolute Basophil Count 0.02 k/cumm (0.0-0.2); Absolute Neutrophil Count 15.73 k/cumm (1.2-6.7)
[2019-07-17 06:56] LABS: BUN 25 mg/dL (7-18); CREATININE 1.35 mg/dL (0.55-1.02); Calcium 8.3 mg/dL (8.5-10.1); Chloride 103 mmol/L (98-107); Glucose 160 mg/dL (74-106); Potassium 4.1 mmol/L (3.5-5.1); Sodium 137 mmol/L (136-145)
[2019-07-17] MEDS: Ketorolac 15 MG/ML VIAL IV (08:49)
[2019-07-17] MEDS: Normal Saline Flush 10 ML SYR IVP ×3 (08:50→20:28)
--- NOTE | 2019-07-17 10:25 | W.PM.PROGNOT ---
Date of Service Date of service: 07/17/19 Time of Service: 10:26 Assessment and Plan Assessment and plan (1) Small bowel obstruction: Status: Acute Assessment and plan: She should have shown more improvement at this point if NG suctioning alone was going to be effective. She continues to have pain, tenderness and her WBC count has increased. Her NG output was 1100 cc. I advised laparotomy with lysis of adhesions, possible small bowel resection. Risks per consent. She agrees to proceed. Last dose of Lovenox was at 2am. She was advised there is a slightly increased risk of bleeding. Subjective Subjective Interval history since last seen: Patient feels pain is under better control with regular medication. No flatus Exam Narrative Exam Narrative: Appears flushed NG output bilious Abdomen still slightly distended. Tender in LLQ primarily but also generalized. Similar to exam yesterday. Objective Objective Clinical Data: Abnormal lab results 07/17/19 07/17/19 Range/Units 06:35 06:35 WBC 18.53 H D (4.4-10.8) k/cumm RDW 14.8 H (11.7-14.6) % Absolute Neutrophils 15.73 H (1.2-6.7) k/cumm Absolute Monocytes 1.28 H (0.11-0.7) k/cumm BUN 25 H D (7-18) mg/dL Creatinine 1.35 H (0.55-1.02) mg/dL Glucose 160 H (74-106) mg/dL Calcium 8.3 L (8.5-10.1) mg/dL Vital Signs Temperature 98.1 F 07/17/19 07:20 Temperature Source Temporal Artery Scan 07/17/19 07:20 Pulse 80 07/17/19 07:20 Pulse Rhythm Regular 07/17/19 05:03 Pulse 62 07/16/19 09:40 Respiratory Rate 16 07/17/19 07:20 Respiratory Effort Non-Labored 07/17/19 05:03 Respiratory Depth Normal 07/17/19 05:03 Respiratory Pattern Normal 07/16/19 23:13 Blood Pressure 160/85 H 07/17/19 07:20 Blood Pressure Mean 106 07/16/19 09:31 Blood Pressure Position Sitting 07/16/19 06:48 Pulse Oximetry 96 07/17/19 07:20 Oxygen Delivery Method Room Air 07/17/19 07:20 Oxygen Flow Rate 0 07/17/19 07:20 Pain Level 3 07/17/19 08:49 Comment 07/16/19 10:00 Intake & Output 07/16/19 07/16/19 07/17/19 11:59 23:59 11:59 Intake Total 1216.667 / 2290.834 1074.167 / 2290.834 1899.167 / 1899.167 Output Total 800 / 2250 1450 / 2250 300 / 300 Balance 416.667 / 40.834 -375.833 / 40.834 1599.167 / 1599.167 Weight 190 lb 0.016 oz Intake: IV 1216.667 / 2170.834 954.167 / 2170.834 1779.167 / 1779.167 Oral 120 / 120 120 / 120 Output: Gastric Drainage 300 / 1150 850 / 1150 Right Nare 300 / 1150 850 / 1150 Urine 500 / 1100 600 / 1100 300 / 300 Other: Urine Color Yellow Yellow Dark Christa Urine Appearance Clear Clear Clear Urine Odor None Voiding Methods Toilet Toilet Toilet Laboratory Results WBC 18.53 k/cumm (4.4-10.8) H D 07/17/19 06:35 RBC 5.14 m/cumm (4.00-5.20) 07/17/19 06:35 Hgb 14.7 g/dL (12.0-15.5) 07/17/19 06:35 Hct 43.5 % (36.0-46.0) 07/17/19 06:35 MCV 84.6 fL (80-95) 07/17/19 06:35 MCH 28.6 pg (27.0-33.0) 07/17/19 06:35 MCHC 33.8 g/dL (32.0-36.0) 07/17/19 06:35 RDW 14.8 % (11.7-14.6) H 07/17/19 06:35 Plt Count 275 x1000/uL (130-400) 07/17/19 06:35 MPV 9.7 fL (8.0-11.0) 07/17/19 06:35 Immature Gran % 0.4 % 07/17/19 06:35 Neutrophils % 84.9 07/17/19 06:35 Lymphocytes % 7.7 07/17/19 06:35 Monocytes % 6.9 07/17/19 06:35 Eosinophils % 0.0 07/17/19 06:35 Basophils % 0.1 07/17/19 06:35 Absolute Neutrophils 15.73 k/cumm (1.2-6.7) H 07/17/19 06:35 Absolute Lymphocytes 1.43 k/cumm (1.2-3.4) 07/17/19 06:35 Absolute Monocytes 1.28 k/cumm (0.11-0.7) H 07/17/19 06:35 Absolute Eosinophils 0.00 k/cumm (0.0-0.7) 07/17/19 06:35 Absolute Basophils 0.02 k/cumm (0.0-0.2) 07/17/19 06:35 PT 10.6 sec (9.3-11.0) 07/16/19 06:58 INR 1.1 (0.9-1.1) 07/16/19 06:58 APTT 22.6 sec (21.0-31.4) 07/16/19 06:58 Sodium 137 mmol/L (136-145) 07/17/19 06:35 Potassium 4.1 mmol/L (3.5-5.1) D 07/17/19 06:35 Chloride 103 mmol/L (98-107) 07/17/19 06:35 Carbon Dioxide 26.0 mmol/L (21.0-32.0) 07/17/19 06:35 Anion Gap 8.0 mmol/L (3-11) 07/17/19 06:35 BUN 25 mg/dL (7-18) H D 07/17/19 06:35 Creatinine 1.35 mg/dL (0.55-1.02) H 07/17/19 06:35 Estimated GFR/1.73 m2 39.00 (mL/min/1.73m2) 07/17/19 06:35 Glucose 160 mg/dL (74-106) H 07/17/19 06:35 Lactate 2.9 mmol/L (0.6-1.4) H* 07/16/19 06:58 Calcium 8.3 mg/dL (8.5-10.1) L 07/17/19 06:35 Total Bilirubin 0.7 mg/dL (0.2-1.0) 07/16/19 06:58 AST 21 U/L (15-37) 07/16/19 06:58 ALT 27 U/L (14-59) 07/16/19 06:58 Alkaline Phosphatase 77 U/L (46-116) 07/16/19 06:58 Troponin I < 0.05 ng/Ml (<0.06) 07/16/19 06:58 Total Protein 8.5 g/dL (6.4-8.2) H 07/16/19 06:58 Albumin 4.2 g/dL (3.4-5.0) 07/16/19 06:58 Lipase 133 U/L (73-393) 07/16/19 06:58 Urine Color Yellow (Yellow) 07/16/19 08:20 Urine Clarity Clear (Clear) 07/16/19 08:20 Urine pH 7.5 (5-8) 07/16/19 08:20 Ur Specific [place] 1.020 (1.005-1.025) 07/16/19 08:20 Urine Protein Negative mg/dL (Negative) 07/16/19 08:20 Urine Ketones 40 mg/dL (Negative) H 07/16/19 08:20 Urine Blood Trace-intact (Negative) H 07/16/19 08:20 Urine Nitrite Negative (Negative) 07/16/19 08:20 Urine Bilirubin Negative (Negative) 07/16/19 08:20 Urine Urobilinogen 0.2 EU/dL (Up TO 0.2) 07/16/19 08:20 Ur Leukocyte Esterase Negative (Negative) 07/16/19 08:20 Urine RBC 3-5 HPF (0-2) H 07/16/19 08:20 Urine WBC 0-2 HPF (0-5) 07/16/19 08:20 Ur Epithelial Cells Rare HPF (Negative) 07/16/19 08:20 Urine Crystals Moderate amorphous HPF (Negative) 07/16/19 08:20 Urine Bacteria Not Applicable 07/16/19 08:20 Urine Mucus Not Applicable 07/16/19 08:20 Ur Culture Indicated? No 07/16/19 08:20 Urine Glucose Negative mg/dL (Negative) 07/16/19 08:20
--- NOTE | 2019-07-17 11:35 | ROE_ITS ---
DATE: JULY 17, 2019 Preoperative Diagnosis: Small bowel obstruction Postoperative Diagnosis: 1. Small bowel obstruction secondary to adhesion 2. Ischemic small bowel Operation: Laparotomy with lysis of adhesions and small bowel resection Surgeon: Tamika Slade M.D. Coffee Host: Rachid Cardona Anesthesia: General and local Indications: This is a 69 year-old woman who presented with about 12 hours of abdominal pain and vomiting. CT scan of the abdomen and pelvis showed evidence of a small bowel obstruction with proximally dilated small bowel and decompressed distal bowel. Her only prior abdominal surgery was a section. The patient did not have improvement in her symptoms with about 24 hours of NG suctioning and did have an increase in her white blood cell count although she was still afebrile. Procedure: She was placed supine on the operating table and under general anesthetic was prepped and draped sterilely. A periumbilical midline incision was made and the abdomen was entered sharply. There was fluid present consistent with small bowel obstruction. This was suctioned free. There was a loop of ischemic appearing bowel that was trapped by a thick and short adhesive band. This was extending from the proximal small bowel and created basically an internal hernia where the more distal small bowel had gone underneath the adhesion and had become trapped. The adhesion was released. There were no other intraabdominal adhesions noted. I then ran the small bowel. The area of affected bowel was located in the distal jejunum or proximal ileum. There was about a 20 cm. segment that did not appear normal. The more distal aspect of it was clearly ischemic and the more proximal aspect appeared simply stressed. The entire bowel was run and there were no other obstructions or adhesions present. The NG was palpated and noted to be within the stomach. I did palpate her liver because of the abnormality seen on CT scan. I could not definitely feel the lesion although there was a fairly soft structure near the dome of the liver on the right. This was too high to adequately visualize or characterize and follow-up imaging is planned. After some time had passed, I did reassess the bowel. The more proximal aspect of the stressed segment had adequate mesenteric pulses and I used this to guide my resection. The linear stapler was used to divide the bowel above and below the ischemic segment. The mesentery was scored and taken down with the LigaSure. A few areas were larger vessels were noted in the mesentery, I did place a #3- 0 silk figure-of-8 stitch. There was good hemostasis noted here. The healthy ends of the bowel were brought together in a [id number] fashion. The corner of the staple line on each was removed with Beltran scissors and then the linear stapler passed down the limbs of the bowel and fired to create the anastomosis. Inspection of the anastomosis revealed no bleeding. The enterotomy was then closed with a running #3-0 Vicryl stitch and #3-0 silk Lembert sutures overlying. Again there was good hemostasis. The abdomen was closed with a #1 PDS suture, one from the top, one from the bottom and tied in the middle and the skin was closed with velma. It should be noted that we did use the wound protector during the bowel resection. She tolerated the procedure well. She was recovered in the Operating Room per the COVID protocol.
[2019-07-17] MEDS: ELECTROLYTE-R SOLUTION 1,000 ML 30 ML IV (11:50)
[2019-07-17] MEDS: Bupivacaine 0.5% Pres-Free 30 ML VIAL (12:58)
--- NOTE | 2019-07-17 13:05 | INITIAL_ITS ---
- If Service Date Differs Date of service: 07/17/19 Time of Service: 13:05 Care Management Initial Assess REASON FOR HOSPITALIZATION:: Small bowel obstruction. PAST MEDICAL HISTORY/PAST SURGICAL HISTORY:: Medical History: Acute deep vein thrombosis (DVT) of left lower extremity, Femur fracture, right, and Pulmonary embolism. 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 PREVIOUS FUNCTIONAL STATUS/SOCIAL/FAMILY SUPPORTS:: Sharon lives in [place] with her , Renny. The couple have two daughters; one who resides in [place] and one in [place]. 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 CURRENT FUNCTIONAL STATUS:: CM is unable to meet with Sharon today as she is in surgery. CM will continue to follow. ADVANCE DIRECTIVES:: None on file. Has patient been provided with information about the portal?: Yes Did the patient sign up for the portal?: Yes (Already signed up.) CODE STATUS:: Full Code INSURANCE COVERAGE / FINANCIAL ISSUES:: [employer] CURRENT HOME/COMMUNITY SERVICES/EQUIPMENT:: None. Sharon is independent at baseline. PRIMARY CARE PHYSICIAN:: Edelmira Lara MD, [facility]. POTENTIAL DISCHARGE NEEDS:: Follow-up appointments with PCP and surgeon. Sharon will also need a follow-up multiphasic hepatic CT after discharge. PATIENT/FAMILY EDUCATION NEEDS:: Discharge instructions, limitations, follow-up plan of care, including Ask Me Three and self-management. ANTICIPATED BARRIERS TO DISCHARGE:: No anticipated barriers at this time. TRANSPORTATION:: Via private vehicle by family. PLAN:: Anticipate Sharon will return home with no new services when medically cleared by provider. She will follow-up with her PCP and surgeon as recommended. Sharon will be transported home via private vehicle with family when ready. CM will continue to support patient and discharge planning needs.
[2019-07-17] MEDS: Normal Saline 1,000 ML 150 ML IV ×2 (14:37→22:10)
[2019-07-17] MEDS: PIPERACILLIN/TAZO 3.375 GM in Normal Saline 50 ML IVPB ×2 (14:38→20:29)
[2019-07-17 17:18] LABS: HGB 13.5 g/dL (12.0-15.5)
[2019-07-17] MEDS: ACETAMINOPHEN 1,000 MG/100 ML BTL 400 MG IVPB (21:10)
[2019-07-18] MEDS: PIPERACILLIN/TAZO 3.375 GM in Normal Saline 100 ML IVPB ×2 (02:07→08:05)
[2019-07-18 04:21] VITALS: BP 136/72; PULSE 73; RESP 16; TEMP 36.1; O2SAT 97
[2019-07-18] MEDS: Normal Saline 1,000 ML 150 ML IV ×3 (05:19→19:00)
[2019-07-18 07:16] LABS: Abs Immature Grans 0.03 k/cumm (0.0-0.09); Absolute Basophil Count 0.01 k/cumm (0.0-0.2); Absolute Lymphocyte Count 1.32 k/cumm (1.2-3.4); Absolute Monocyte Count 0.92 k/cumm (0.11-0.7); Absolute Neutrophil Count 12.04 k/cumm (1.2-6.7); Basophils % 0.1; HCT 35.2 % (36.0-46.0); HGB 11.4 g/dL (12.0-15.5); Immature Grans % 0.2 %; Lymphocytes % 9.2; Mean Corp. HGB Concentration 32.4 g/dL (32.0-36.0); Mean Corpuscular Hemoglobin 28.4 pg (27.0-33.0); Mean Corpuscular Volume 87.6 fL (80-95); Mean Platelet Volume 10.1 fL (8.0-11.0); Monocytes % 6.4; Neutrophils % 84.1; Platelet Count 199 x1000/uL (130-400); RBC 4.02 m/cumm (4.00-5.20); RBC Distribution Width 14.7 % (11.7-14.6); White Blood Cell Count 14.32 k/cumm (4.4-10.8)
[2019-07-18 07:21] LABS: Anion Gap 4.9 mmol/L (3-11); BUN 22 mg/dL (7-18); CO2 29.1 mmol/L (21.0-32.0); Calcium 7.7 mg/dL (8.5-10.1); Chloride 108 mmol/L (98-107); Estimated GFR 55.14 (mL/min/1.73m2); Glucose 133 mg/dL (74-106); Sodium 142 mmol/L (136-145)
[2019-07-18 09:04] VITALS: BP 153/78; PULSE 80; RESP 18; TEMP 37.6; O2SAT 96
--- NOTE | 2019-07-18 10:58 | PHA.REVIEW ---
Pharmacy Admission Review - Admission Clinical Review (Last Reviewed 07/16/19 @ 12:00 by Tamika Slade MD) Liver lesion (Acute) Bilateral pulmonary embolism (Acute) Small bowel obstruction (Acute) No Known Allergies Allergy (Unverified 06/28/19 17:27) Height 5 ft 8 in Weight 86.183 kg - Renal Dosing Renal Dosing: BUN 22 mg/dL (7-18) H 07/18/19 06:30 Creatinine 1.00 mg/dL (0.55-1.02) 07/18/19 06:30 Medications needing adjustments: Reviewed (CRCL ~54ML/MIN) - Anticoagulation Anticoagulation: Hgb 11.4 g/dL (12.0-15.5) L D 07/18/19 06:30 Hct 35.2 % (36.0-46.0) L 07/18/19 06:30 Plt Count 199 x1000/uL (130-400) 07/18/19 06:30 INR 1.1 (0.9-1.1) 07/16/19 06:58 Creatinine 1.00 mg/dL (0.55-1.02) 07/18/19 06:30 DVT Prohphylaxis: Reviewed (on hold, sugery yesterday) Therapeutic Anticoagulation: Reviewed (pt takes apixaban at home. switched to lovenox inpt and that was put on hold yesterday for surgery. expect restart when appropriate) - Opiate Usage Evaluate Pain Scale/Pains Meds: Reviewed Scheduled Bowel Reg ordered if on Opiates?: No (no PO meds ordered) - Relevant Labs Sodium 142 mmol/L (136-145) 07/18/19 06:30 Potassium 4.0 mmol/L (3.5-5.1) 07/18/19 06:30 Chloride 108 mmol/L (98-107) H 07/18/19 06:30 Electrolytes, C-Reactive P, ESR: Reviewed - DM Control DM Control: Glucose 133 mg/dL (74-106) H 07/18/19 06:30 Insulin Dosing: N/A - Heart Failure/MD Heart Failure/MD: Troponin I < 0.05 ng/Ml (<0.06) 07/16/19 06:58 EF%, JAZMYNE's, B-Blockers, Diuretics: N/A - BP Control BP Control: Blood Pressure 153/78 Blood Pressure 136/72 Blood Pressure 120/70 If elevated: N/A - Qtc Review If Elevated: Reviewed (482. [id number]) - IV to PO Switch IV Medications: Reviewed (all IV) - Home Meds Home Med List reviewed: Reviewed (apixaban switched to enoxparin and is on hold) - Current meds Current Medication Order Review: Reviewed (watch for restart of therapeutic anticoagulation)
[2019-07-18] MEDS: Pantoprazole 40 MG VIAL IVP (15:43)
[2019-07-18] MEDS: Normal Saline Flush 10 ML SYR IVP (15:49)
--- NOTE | 2019-07-18 16:50 | PDOC.CMPRO ---
- If Service Date Differs Date of service: 07/18/19 Time of Service: 16:50 Care Management Progress Note S/O: Sharon is sitting in bed when CM comes to meet with her. She is pleasant and easily engages in conversation. She anticipates being discharged home in a few more days and hopes to be home by , as it is her '[birth year] birthday. She still has an NG tube in place and remains NPO. CM will continue to follow. A: Sharon is a 69 year old female admitted to [facility] on 07/16/2019 for a small bowel obstruction. P: Anticipate Sharon will return home with no new services when medically cleared by provider. Her , Renny, will transport her home via private vehicle when ready. CM will continue to follow.
[2019-07-18 19:10] VITALS: BP 163/79; PULSE 89; RESP 20; TEMP 37.2; O2SAT 95
--- NOTE | 2019-07-18 20:08 | W.PM.PROGNOT ---
Date of Service Date of service: 07/18/19 Time of Service: 14:00 Assessment and Plan Assessment and plan (1) Small bowel obstruction: Status: Acute Assessment and plan: NG output still fairly high, no flatus. Will keep in today. Resume Lovenox due to recent PE, monitor NG output appearance and HGB Patient UOP has improved today along with cr, will monitor and keep Simmons until tomorrow. Slightly elevated temp likely from atelectasis. Subjective Subjective Interval history since last seen: Pain is improved since surgery. Has not used narcotics. No flatus or BM. Patient is ambulating. Exam Narrative Exam Narrative: Alert, comfortable NG output dark with old blood combined with bilious output. No red blood present Abdomen slightly distended but soft. Incision C/D/I Objective Objective Clinical Data: Abnormal lab results 07/18/19 07/18/19 Range/Units 06:30 06:30 WBC 14.32 H (4.4-10.8) k/cumm Hgb 11.4 L D (12.0-15.5) g/dL Hct 35.2 L (36.0-46.0) % RDW 14.7 H (11.7-14.6) % Absolute Neutrophils 12.04 H (1.2-6.7) k/cumm Absolute Monocytes 0.92 H (0.11-0.7) k/cumm Chloride 108 H (98-107) mmol/L BUN 22 H (7-18) mg/dL Glucose 133 H (74-106) mg/dL Calcium 7.7 L (8.5-10.1) mg/dL Vital Signs Temperature 99.0 F 07/18/19 19:10 Temperature Source Temporal Artery Scan 07/18/19 19:10 Pulse 89 07/18/19 19:10 Pulse Rhythm Regular 07/18/19 15:15 Pulse 62 07/16/19 09:40 Respiratory Rate 20 07/18/19 19:10 Respiratory Effort Non-Labored 07/18/19 15:15 Respiratory Depth Normal 07/18/19 15:15 Respiratory Pattern Normal 07/18/19 15:15 Blood Pressure 163/79 H 07/18/19 19:10 Blood Pressure Mean 106 07/16/19 09:31 Blood Pressure Position Sitting 07/16/19 06:48 Pulse Oximetry 95 07/18/19 19:10 Respiratory End-tidal CO2 15 07/17/19 13:27 Oxygen Delivery Method Room Air 07/18/19 19:10 Oxygen Flow Rate 0 07/18/19 19:10 Pain Level 0 07/18/19 19:10 Comment 07/16/19 10:00 Intake & Output 07/17/19 07/18/19 07/18/19 23:59 11:59 23:59 Intake Total 3104.167 / 5003.334 1320 / 3267.5 1947.5 / 3267.5 Output Total 600 / 1200 1425 / 2725 1300 / 2725 Balance 2504.167 / 3803.334 -105 / 542.5 647.5 / 542.5 Intake: IV 3104.167 / 4883.334 1200 / 3147.5 1947.5 / 3147.5 Oral 120 / 120 Output: Gastric Drainage 750 / 1450 700 / 1450 Right Nare 750 / 1450 700 / 1450 Urine 600 / 1200 675 / 1275 600 / 1275 Other: Urine Color Straw Yellow Yellow Urine Appearance Cloudy Clear Cloudy Urine Odor Normal Emesis Description None Voiding Methods Indwelling Catheter Laboratory Results WBC 14.32 k/cumm (4.4-10.8) H 07/18/19 06:30 RBC 4.02 m/cumm (4.00-5.20) 07/18/19 06:30 Hgb 11.4 g/dL (12.0-15.5) L D 07/18/19 06:30 Hct 35.2 % (36.0-46.0) L 07/18/19 06:30 MCV 87.6 fL (80-95) D 07/18/19 06:30 MCH 28.4 pg (27.0-33.0) 07/18/19 06:30 MCHC 32.4 g/dL (32.0-36.0) 07/18/19 06:30 RDW 14.7 % (11.7-14.6) H 07/18/19 06:30 Plt Count 199 x1000/uL (130-400) 07/18/19 06:30 MPV 10.1 fL (8.0-11.0) 07/18/19 06:30 Immature Gran % 0.2 % 07/18/19 06:30 Neutrophils % 84.1 07/18/19 06:30 Lymphocytes % 9.2 07/18/19 06:30 Monocytes % 6.4 07/18/19 06:30 Eosinophils % 0.0 07/18/19 06:30 Basophils % 0.1 07/18/19 06:30 Absolute Neutrophils 12.04 k/cumm (1.2-6.7) H 07/18/19 06:30 Absolute Lymphocytes 1.32 k/cumm (1.2-3.4) 07/18/19 06:30 Absolute Monocytes 0.92 k/cumm (0.11-0.7) H 07/18/19 06:30 Absolute Eosinophils 0.00 k/cumm (0.0-0.7) 07/18/19 06:30 Absolute Basophils 0.01 k/cumm (0.0-0.2) 07/18/19 06:30 PT 10.6 sec (9.3-11.0) 07/16/19 06:58 INR 1.1 (0.9-1.1) 07/16/19 06:58 APTT 22.6 sec (21.0-31.4) 07/16/19 06:58 Sodium 142 mmol/L (136-145) 07/18/19 06:30 Potassium 4.0 mmol/L (3.5-5.1) 07/18/19 06:30 Chloride 108 mmol/L (98-107) H 07/18/19 06:30 Carbon Dioxide 29.1 mmol/L (21.0-32.0) 07/18/19 06:30 Anion Gap 4.9 mmol/L (3-11) 07/18/19 06:30 BUN 22 mg/dL (7-18) H 07/18/19 06:30 Creatinine 1.00 mg/dL (0.55-1.02) 07/18/19 06:30 Estimated GFR/1.73 m2 55.14 (mL/min/1.73m2) 07/18/19 06:30 Glucose 133 mg/dL (74-106) H 07/18/19 06:30 Lactate 2.9 mmol/L (0.6-1.4) H* 07/16/19 06:58 Calcium 7.7 mg/dL (8.5-10.1) L 07/18/19 06:30 Total Bilirubin 0.7 mg/dL (0.2-1.0) 07/16/19 06:58 AST 21 U/L (15-37) 07/16/19 06:58 ALT 27 U/L (14-59) 07/16/19 06:58 Alkaline Phosphatase 77 U/L (46-116) 07/16/19 06:58 Troponin I < 0.05 ng/Ml (<0.06) 07/16/19 06:58 Total Protein 8.5 g/dL (6.4-8.2) H 07/16/19 06:58 Albumin 4.2 g/dL (3.4-5.0) 07/16/19 06:58 Lipase 133 U/L (73-393) 07/16/19 06:58 Urine Color Yellow (Yellow) 07/16/19 08:20 Urine Clarity Clear (Clear) 07/16/19 08:20 Urine pH 7.5 (5-8) 07/16/19 08:20 Ur Specific [place] 1.020 (1.005-1.025) 07/16/19 08:20 Urine Protein Negative mg/dL (Negative) 07/16/19 08:20 Urine Ketones 40 mg/dL (Negative) H 07/16/19 08:20 Urine Blood Trace-intact (Negative) H 07/16/19 08:20 Urine Nitrite Negative (Negative) 07/16/19 08:20 Urine Bilirubin Negative (Negative) 07/16/19 08:20 Urine Urobilinogen 0.2 EU/dL (Up TO 0.2) 07/16/19 08:20 Ur Leukocyte Esterase Negative (Negative) 07/16/19 08:20 Urine RBC 3-5 HPF (0-2) H 07/16/19 08:20 Urine WBC 0-2 HPF (0-5) 07/16/19 08:20 Ur Epithelial Cells Rare HPF (Negative) 07/16/19 08:20 Urine Crystals Moderate amorphous HPF (Negative) 07/16/19 08:20 Urine Bacteria Not Applicable 07/16/19 08:20 Urine Mucus Not Applicable 07/16/19 08:20 Ur Culture Indicated? No 07/16/19 08:20 Urine Glucose Negative mg/dL (Negative) 07/16/19 08:20
[2019-07-18] MEDS: Enoxaparin 80 MG/0.8 ML SYR SC (20:45)
[2019-07-19 06:20] VITALS: BP 152/76; PULSE 88; RESP 18; TEMP 37.4; O2SAT 95
[2019-07-19 06:57] LABS: Abs Immature Grans 0.02 k/cumm (0.0-0.09); Absolute Lymphocyte Count 2.24 k/cumm (1.2-3.4); Absolute Monocyte Count 0.65 k/cumm (0.11-0.7); Absolute Neutrophil Count 6.16 k/cumm (1.2-6.7); HCT 31.3 % (36.0-46.0); Immature Grans % 0.2 %; Lymphocytes % 24.7; Mean Corp. HGB Concentration 31.9 g/dL (32.0-36.0); Mean Corpuscular Hemoglobin 28.3 pg (27.0-33.0); Mean Corpuscular Volume 88.7 fL (80-95); Mean Platelet Volume 9.8 fL (8.0-11.0); Monocytes % 7.2; Neutrophils % 67.9; Platelet Count 180 x1000/uL (130-400); RBC 3.53 m/cumm (4.00-5.20); RBC Distribution Width 14.8 % (11.7-14.6); White Blood Cell Count 9.07 k/cumm (4.4-10.8)
[2019-07-19 07:23] LABS: Anion Gap 7.9 mmol/L (3-11); BUN 14 mg/dL (7-18); CO2 27.1 mmol/L (21.0-32.0); CREATININE 0.67 mg/dL (0.55-1.02); Calcium 7.7 mg/dL (8.5-10.1); Chloride 108 mmol/L (98-107); Glucose 91 mg/dL (74-106); Potassium 3.2 mmol/L (3.5-5.1); Sodium 143 mmol/L (136-145)
[2019-07-19] MEDS: Normal Saline 1,000 ML 125 ML IV (07:33)
[2019-07-19] MEDS: Enoxaparin 80 MG/0.8 ML SYR SC ×2 (07:47→20:03)
[2019-07-19 07:52] VITALS: BP 150/76; PULSE 65; RESP 18; TEMP 37; O2SAT 97
--- NOTE | 2019-07-19 08:00 | PDOC.CMPRO ---
- If Service Date Differs Date of service: 07/19/19 Time of Service: 08:00 Care Management Progress Note S/O: Sharon was sitting up in bed when CM met with her. She stated that she is feeling better and has no pain. She shared that, per provider, when she is able to pass flatus, the NG tube will be removed and she will be able to begin a diet with clear liquids. She was told that she has faint bowel sounds today so she is hopeful thyat she will be able to have the NG tube out soon. She does not anticipate needing any services when she returns home. A: Sharon is a 69 year old female admitted to [facility] on 07/16/2019 for a small bowel obstruction. P: Anticipate Sharon will return home with no new services when medically cleared by provider. Her , Renny, will transport her home via private vehicle when ready. CM will continue to follow.
--- NOTE | 2019-07-19 10:01 | W.PM.PROGNOT ---
Date of Service Date of service: 07/19/19 Time of Service: 09:20 Assessment and Plan Assessment and plan (1) S/P small bowel resection: Status: Acute Assessment and plan: She is making progress. NG output is decreasing, leave in until she is passing flatus WBC normalized, HgB stable UOP and BUN/cr improved, will decrease IVF and remove Simmons. Subjective Subjective Interval history since last seen: Denies pain since surgery Has been ambulating Feels like soft tissue is puffy No flatus yet Exam Narrative Exam Narrative: Appears comfortable, alert Abdomen soft, nondistended. Dressing dry Some mild generalized edema and also some evidence of IV fluid infiltration in the left antecubital fossa. Objective Objective Clinical Data: Abnormal lab results 07/19/19 07/19/19 Range/Units 06:25 06:25 RBC 3.53 L (4.00-5.20) m/cumm Hgb 10.0 L (12.0-15.5) g/dL Hct 31.3 L (36.0-46.0) % MCHC 31.9 L (32.0-36.0) g/dL RDW 14.8 H (11.7-14.6) % Potassium 3.2 L (3.5-5.1) mmol/L Chloride 108 H (98-107) mmol/L Calcium 7.7 L (8.5-10.1) mg/dL Vital Signs Temperature 98.6 F 07/19/19 07:52 Temperature Source Temporal Artery Scan 07/19/19 07:52 Pulse 65 07/19/19 07:52 Pulse Rhythm Regular 07/19/19 08:17 Pulse 62 07/16/19 09:40 Respiratory Rate 18 07/19/19 07:52 Respiratory Effort 07/19/19 08:17 Respiratory Depth Normal 07/19/19 08:17 Respiratory Pattern Normal 07/19/19 08:17 Blood Pressure 150/76 H 07/19/19 07:52 Blood Pressure Mean 106 07/16/19 09:31 Blood Pressure Position Sitting 07/16/19 06:48 Pulse Oximetry 97 07/19/19 07:52 Respiratory End-tidal CO2 15 07/17/19 13:27 Oxygen Delivery Method Room Air 07/19/19 07:52 Oxygen Flow Rate 0 07/19/19 07:52 Pain Level 0 07/19/19 07:52 Comment 07/16/19 10:00 Intake & Output 07/18/19 07/18/19 07/19/19 11:59 23:59 11:59 Intake Total 1320 / 3792.5 2472.5 / 3792.5 475 / 475 Output Total 1425 / 2725 1300 / 2725 1250 / 1250 Balance -105 / 1067.5 1172.5 / 1067.5 -775 / -775 Intake: IV 1200 / 3672.5 2472.5 / 3672.5 475 / 475 Oral 120 / 120 Output: Gastric Drainage 750 / 1450 700 / 1450 150 / 150 Right Nare 750 / 1450 700 / 1450 150 / 150 Urine 675 / 1275 600 / 1275 1100 / 1100 Other: Urine Color Yellow Yellow Yellow Urine Appearance Clear Clear Cloudy Voiding Methods Indwelling Catheter Laboratory Results WBC 9.07 k/cumm (4.4-10.8) D 07/19/19 06:25 RBC 3.53 m/cumm (4.00-5.20) L 07/19/19 06:25 Hgb 10.0 g/dL (12.0-15.5) L 07/19/19 06:25 Hct 31.3 % (36.0-46.0) L 07/19/19 06:25 MCV 88.7 fL (80-95) 07/19/19 06:25 MCH 28.3 pg (27.0-33.0) 07/19/19 06:25 MCHC 31.9 g/dL (32.0-36.0) L 07/19/19 06:25 RDW 14.8 % (11.7-14.6) H 07/19/19 06:25 Plt Count 180 x1000/uL (130-400) 07/19/19 06:25 MPV 9.8 fL (8.0-11.0) 07/19/19 06:25 Immature Gran % 0.2 % 07/19/19 06:25 Neutrophils % 67.9 07/19/19 06:25 Lymphocytes % 24.7 07/19/19 06:25 Monocytes % 7.2 07/19/19 06:25 Eosinophils % 0.0 07/19/19 06:25 Basophils % 0.0 07/19/19 06:25 Absolute Neutrophils 6.16 k/cumm (1.2-6.7) 07/19/19 06:25 Absolute Lymphocytes 2.24 k/cumm (1.2-3.4) 07/19/19 06:25 Absolute Monocytes 0.65 k/cumm (0.11-0.7) 07/19/19 06:25 Absolute Eosinophils 0.00 k/cumm (0.0-0.7) 07/19/19 06:25 Absolute Basophils 0.00 k/cumm (0.0-0.2) 07/19/19 06:25 PT 10.6 sec (9.3-11.0) 07/16/19 06:58 INR 1.1 (0.9-1.1) 07/16/19 06:58 APTT 22.6 sec (21.0-31.4) 07/16/19 06:58 Sodium 143 mmol/L (136-145) 07/19/19 06:25 Potassium 3.2 mmol/L (3.5-5.1) L 07/19/19 06:25 Chloride 108 mmol/L (98-107) H 07/19/19 06:25 Carbon Dioxide 27.1 mmol/L (21.0-32.0) 07/19/19 06:25 Anion Gap 7.9 mmol/L (3-11) 07/19/19 06:25 BUN 14 mg/dL (7-18) D 07/19/19 06:25 Creatinine 0.67 mg/dL (0.55-1.02) 07/19/19 06:25 Estimated GFR/1.73 m2 >= 60.00 (mL/min/1.73m2) 07/19/19 06:25 Glucose 91 mg/dL (74-106) 07/19/19 06:25 Lactate 2.9 mmol/L (0.6-1.4) H* 07/16/19 06:58 Calcium 7.7 mg/dL (8.5-10.1) L 07/19/19 06:25 Total Bilirubin 0.7 mg/dL (0.2-1.0) 07/16/19 06:58 AST 21 U/L (15-37) 07/16/19 06:58 ALT 27 U/L (14-59) 07/16/19 06:58 Alkaline Phosphatase 77 U/L (46-116) 07/16/19 06:58 Troponin I < 0.05 ng/Ml (<0.06) 07/16/19 06:58 Total Protein 8.5 g/dL (6.4-8.2) H 07/16/19 06:58 Albumin 4.2 g/dL (3.4-5.0) 07/16/19 06:58 Lipase 133 U/L (73-393) 07/16/19 06:58 Urine Color Yellow (Yellow) 07/16/19 08:20 Urine Clarity Clear (Clear) 07/16/19 08:20 Urine pH 7.5 (5-8) 07/16/19 08:20 Ur Specific [place] 1.020 (1.005-1.025) 07/16/19 08:20 Urine Protein Negative mg/dL (Negative) 07/16/19 08:20 Urine Ketones 40 mg/dL (Negative) H 07/16/19 08:20 Urine Blood Trace-intact (Negative) H 07/16/19 08:20 Urine Nitrite Negative (Negative) 07/16/19 08:20 Urine Bilirubin Negative (Negative) 07/16/19 08:20 Urine Urobilinogen 0.2 EU/dL (Up TO 0.2) 07/16/19 08:20 Ur Leukocyte Esterase Negative (Negative) 07/16/19 08:20 Urine RBC 3-5 HPF (0-2) H 07/16/19 08:20 Urine WBC 0-2 HPF (0-5) 07/16/19 08:20 Ur Epithelial Cells Rare HPF (Negative) 07/16/19 08:20 Urine Crystals Moderate amorphous HPF (Negative) 07/16/19 08:20 Urine Bacteria Not Applicable 07/16/19 08:20 Urine Mucus Not Applicable 07/16/19 08:20 Ur Culture Indicated? No 07/16/19 08:20 Urine Glucose Negative mg/dL (Negative) 07/16/19 08:20
--- NOTE | 2019-07-19 12:23 | BOWEL_PTH ---
PATIENT: Sharon Simmons LOC: U#:[id number] AGE/SX: 69/F ROOM: RE07/16/[address]: Tamika Slade MD : [id number] BED: A DIS: 07/21/2019 SPEC #: [id number] RECD: 07/19/19 14:04 STATUS: JIMBO REQ #: [id number] HARLEY: 07/19/19 12:[address]: Tamika Slade DEPT: Surgical Specimen RECD BY: Crow Lowe ENTERED: 07/19/19 14:06 SP TYPE: Bowel OTHR DR: Edelmira Lara Tissues: 1 - BOWEL/OSTOMY STOMA Procedures: GROSS AND MICRO LEVEL 5 Comments: [id number]
--- NOTE | 2019-07-19 13:04 | W.NUTCONSULT ---
Date of service: 07/19/19 Time of Service: 13:04 Nutritional Consult ASSESSMENT: 69 year old female s/p small bowel resection secondary to SBO. Continues to be NPO. Day 4 due to no flatues s/p surgery. Suspect will advance diet in next 24 hours, if unable to do so, will need to consider TPN to provided nutrient needs. BMI wnl for age. Hx of pulmonary embolism. Labs/Meds reviewed. Estimated Needs: [id number] kca, 86-90 g protein, 2580 ml fluid. NUTRITIONAL DIAGNOSIS: inadequate nutrient needs INTERVENTION: IV fluids, NPO until medically stable MONITORING AND EVALUATION: weight, po intake, labs, diet Time Spent in Nutritional Counseling and Treatment: 0 time spent face to face
[2019-07-19] MEDS: Pantoprazole 40 MG VIAL IVP (15:28)
[2019-07-19 15:36] VITALS: BP 160/68; PULSE 81; RESP 18; TEMP 37; O2SAT 97
--- NOTE | 2019-07-19 16:04 | CHAPLAIN ---
Sharon was sitting up in her chair when I visited. We know each other as coworkers and friends. She told me about coming into the ED after a night of severe pain at home. She had surgery on Friday. Just previous she has been dealing with a blood clot. Her , Renny, brought her to the ED and then went home. She is in touch with him and her two daughters by phone. She seems to be comfortable being here. She is waiting to have her nasal tube pulled so she can drink and eat again.
[2019-07-19] MEDS: Normal Saline 1,000 ML 100 ML IV (16:53)
[2019-07-19 23:46] VITALS: BP 159/73; PULSE 76; RESP 16; TEMP 37; O2SAT 96
[2019-07-20] MEDS: Normal Saline 1,000 ML 100 ML IV ×3 (02:29→23:10)
[2019-07-20] MEDS: Enoxaparin 80 MG/0.8 ML SYR SC ×2 (08:27→20:56)
[2019-07-20 09:02] VITALS: BP 169/93; PULSE 109; RESP 17; TEMP 36.9; O2SAT 97
--- NOTE | 2019-07-20 09:45 | PDOC.CMPRO ---
- If Service Date Differs Date of service: 07/20/19 Time of Service: 09:45 Care Management Progress Note S/O: Sharon was sitting up in bed when CM met with her. She was smiling and stated that she continues to feel well but has not yet passed flatus. The NG tube is being removed today and she will likely be allowed to begin clear liquids soon. Sharon was able to shower today and ambulate in the oneill. A: Sharon is a 69 year old female admitted to [facility] on 07/16/2019 for a small bowel obstruction. P: Anticipate Sharon will return home with no new services when medically cleared by provider. She will follow up with her PCP, surgeon and discharge plan of care. Her , Renny, will transport her home via private vehicle when ready. CM will continue to follow.
--- NOTE | 2019-07-20 10:18 | W.PM.PROGNOT ---
Date of Service Date of service: 07/20/19 Time of Service: 10:19 Assessment and Plan Assessment and plan (1) S/P small bowel resection: Status: Acute Assessment and plan: Await bowel function - anticipate removing NG today and starting clears. Will replace K Good UOP, is auto-diuresing Subjective Subjective Interval history since last seen: No flatus but feels a lot of gurgling Feels less fluid overloaded. Had a few extra heart beats last night, no chest pain. Exam Narrative Exam Narrative: Appears well Heart RRR Abdomen soft, incision CDI Less generalized edema, left antecubital fossa looks better. Objective Objective Clinical Data: Vital Signs Temperature 98.4 F 07/20/19 09:02 Temperature Source Temporal Artery Scan 07/20/19 09:02 Pulse 109 H 07/20/19 09:02 Pulse Rhythm Regular 07/20/19 09:02 Pulse 62 07/16/19 09:40 Respiratory Rate 17 07/20/19 09:02 Respiratory Effort 07/20/19 09:02 Respiratory Depth Normal 07/20/19 09:02 Respiratory Pattern Normal 07/20/19 09:02 Blood Pressure 169/93 H 07/20/19 09:02 Blood Pressure Mean 106 07/16/19 09:31 Blood Pressure Position Sitting 07/16/19 06:48 Pulse Oximetry 97 07/20/19 09:02 Respiratory End-tidal CO2 15 07/17/19 13:27 Oxygen Delivery Method Room Air 07/20/19 09:02 Oxygen Flow Rate 0 07/20/19 09:02 Pain Level 0 07/19/19 15:36 Comment 07/16/19 10:00 Intake & Output 07/19/19 07/19/19 07/20/19 11:59 23:59 11:59 Intake Total 825.000 / 2125.000 1300 / 2125.000 960 / 960 Output Total 1300 / 2450 1150 / 2450 1500 / 1500 Balance -475.000 / -325.000 150 / -325.000 -540 / -540 Intake: IV 825.000 / 2125.000 1300 / 2125.000 960 / 960 Output: Gastric Drainage 150 / 550 400 / 550 Right Nare 150 / 550 400 / 550 Urine 1150 / 1900 750 / 1900 1500 / 1500 Other: Urine Color Yellow Yellow Yellow Urine Appearance Clear Clear Clear Voiding Methods Toilet Toilet Toilet Laboratory Results WBC 9.07 k/cumm (4.4-10.8) D 07/19/19 06:25 RBC 3.53 m/cumm (4.00-5.20) L 07/19/19 06:25 Hgb 10.0 g/dL (12.0-15.5) L 07/19/19 06:25 Hct 31.3 % (36.0-46.0) L 07/19/19 06:25 MCV 88.7 fL (80-95) 07/19/19 06:25 MCH 28.3 pg (27.0-33.0) 07/19/19 06:25 MCHC 31.9 g/dL (32.0-36.0) L 07/19/19 06:25 RDW 14.8 % (11.7-14.6) H 07/19/19 06:25 Plt Count 180 x1000/uL (130-400) 07/19/19 06:25 MPV 9.8 fL (8.0-11.0) 07/19/19 06:25 Immature Gran % 0.2 % 07/19/19 06:25 Neutrophils % 67.9 07/19/19 06:25 Lymphocytes % 24.7 07/19/19 06:25 Monocytes % 7.2 07/19/19 06:25 Eosinophils % 0.0 07/19/19 06:25 Basophils % 0.0 07/19/19 06:25 Absolute Neutrophils 6.16 k/cumm (1.2-6.7) 07/19/19 06:25 Absolute Lymphocytes 2.24 k/cumm (1.2-3.4) 07/19/19 06:25 Absolute Monocytes 0.65 k/cumm (0.11-0.7) 07/19/19 06:25 Absolute Eosinophils 0.00 k/cumm (0.0-0.7) 07/19/19 06:25 Absolute Basophils 0.00 k/cumm (0.0-0.2) 07/19/19 06:25 PT 10.6 sec (9.3-11.0) 07/16/19 06:58 INR 1.1 (0.9-1.1) 07/16/19 06:58 APTT 22.6 sec (21.0-31.4) 07/16/19 06:58 Sodium 143 mmol/L (136-145) 07/19/19 06:25 Potassium 3.2 mmol/L (3.5-5.1) L 07/19/19 06:25 Chloride 108 mmol/L (98-107) H 07/19/19 06:25 Carbon Dioxide 27.1 mmol/L (21.0-32.0) 07/19/19 06:25 Anion Gap 7.9 mmol/L (3-11) 07/19/19 06:25 BUN 14 mg/dL (7-18) D 07/19/19 06:25 Creatinine 0.67 mg/dL (0.55-1.02) 07/19/19 06:25 Estimated GFR/1.73 m2 >= 60.00 (mL/min/1.73m2) 07/19/19 06:25 Glucose 91 mg/dL (74-106) 07/19/19 06:25 Lactate 2.9 mmol/L (0.6-1.4) H* 07/16/19 06:58 Calcium 7.7 mg/dL (8.5-10.1) L 07/19/19 06:25 Total Bilirubin 0.7 mg/dL (0.2-1.0) 07/16/19 06:58 AST 21 U/L (15-37) 07/16/19 06:58 ALT 27 U/L (14-59) 07/16/19 06:58 Alkaline Phosphatase 77 U/L (46-116) 07/16/19 06:58 Troponin I < 0.05 ng/Ml (<0.06) 07/16/19 06:58 Total Protein 8.5 g/dL (6.4-8.2) H 07/16/19 06:58 Albumin 4.2 g/dL (3.4-5.0) 07/16/19 06:58 Lipase 133 U/L (73-393) 07/16/19 06:58 Urine Color Yellow (Yellow) 07/16/19 08:20 Urine Clarity Clear (Clear) 07/16/19 08:20 Urine pH 7.5 (5-8) 07/16/19 08:20 Ur Specific [place] 1.020 (1.005-1.025) 07/16/19 08:20 Urine Protein Negative mg/dL (Negative) 07/16/19 08:20 Urine Ketones 40 mg/dL (Negative) H 07/16/19 08:20 Urine Blood Trace-intact (Negative) H 07/16/19 08:20 Urine Nitrite Negative (Negative) 07/16/19 08:20 Urine Bilirubin Negative (Negative) 07/16/19 08:20 Urine Urobilinogen 0.2 EU/dL (Up TO 0.2) 07/16/19 08:20 Ur Leukocyte Esterase Negative (Negative) 07/16/19 08:20 Urine RBC 3-5 HPF (0-2) H 07/16/19 08:20 Urine WBC 0-2 HPF (0-5) 07/16/19 08:20 Ur Epithelial Cells Rare HPF (Negative) 07/16/19 08:20 Urine Crystals Moderate amorphous HPF (Negative) 07/16/19 08:20 Urine Bacteria Not Applicable 07/16/19 08:20 Urine Mucus Not Applicable 07/16/19 08:20 Ur Culture Indicated? No 07/16/19 08:20 Urine Glucose Negative mg/dL (Negative) 07/16/19 08:20
[2019-07-20] MEDS: Normal Saline Flush 10 ML SYR IVP ×2 (10:49→15:34)
[2019-07-20] MEDS: POTASSIUM CHLORIDE 20 MEQ/100 ML BAG 50 MEQ IVPB ×2 (10:51→14:08)
[2019-07-20 15:10] VITALS: BP 149/84; PULSE 69; RESP 18; TEMP 37.2; O2SAT 98
[2019-07-20] MEDS: Pantoprazole 40 MG VIAL IVP (15:35)
--- NOTE | 2019-07-20 15:38 | CHAPLAIN ---
Sharon had her nasal tube taken out today, and had a shower and was feeling much better. She hopes to be going home tomorrow, his 's birthday. She has been keeping in touch with him and their daughters by phone.
[2019-07-21 00:55] VITALS: BP 147/88; PULSE 61; RESP 17; TEMP 36.9; O2SAT 96
[2019-07-21 07:18] VITALS: BP 159/83; PULSE 74; RESP 17; TEMP 37; O2SAT 97
[2019-07-21] MEDS: Enoxaparin 80 MG/0.8 ML SYR SC ×2 (07:42→17:48)
--- NOTE | 2019-07-21 07:59 | DSE_ITS ---
Documented by User: Taimka Slade MD 03/27/20 11:57 DS: Diagnosis Discharge Diagnosis (1) S/P small bowel resection: Status: Acute (2) Small bowel obstruction: Status: Inactive (3) Liver lesion: Status: Acute (4) Bilateral pulmonary embolism: Status: Inactive Discharge Plan Disposition Patient Disposition: HOME Condition: Stable Discharge Details Reason For Visit: SMALL BOWEL OBSTRUCTION Admit Date/Time: 07/16/19 08:56 Admit Provider: Tamika Slade Attending Provider: Tamika Slade Primary Care Provider: Edelmira Lara [facility] Course Hospital Course: The patient presented with abdominal pain and CT findings of a small bowel ob struction. Her condition did not improve with 24 hours of NG suctioning. She was taken to the operating room and found to have a single adhesion causing an obstructed/ischemic loop of bowel. This was resected. She tolerated the procedure well. She had an elevation of BUN/cr due to fluid losses from the SBO. This normalized with fluids. Her Simmons was removed on POD 2. Antibiotics were given for 24 hours postop and then discontinued. Her WBC count normalized on POD 2. She was kept on Lovenox for most of the hospitalization with the exception of a 24 hour period around the time of surgery. Her NG output was high the day or two postop. When the output decreased and she passed flatues, it was was removed on POD 3 and a clear liquid diet started. After surgery she did not require any pain medication. She will need a follow up CT of the liver. Home Meds and New Rx's Prescriptions: New tramadol 50 mg tablet 50 mg PO Q6H PRNQty: 20 RF: 0 sennosides-docusate sodium [Senna Plus] 8.6-50 mg tablet 1 tab-cap PO BID Qty: 60 RF: 3 Continued multivitamin [Daily Multi-Vitamin] 1 EACH tablet 1 ea PO DAILY RF: 0 Emergen-C 1,000 mg Powder Effervescent In Packet 1 mg PO DAILY RF: 0 cholecalciferol (vitamin D3) [Vitamin D3] 25 mcg (1,000 unit) Tablet,Chewable 1 unit PO DAILY RF: 0 Eliquis 5 mg tablet 5 mg PO BID Qty: 60 RF: 0 Discharge Instructions Additional Instructions: The incision can be left open to air or covered with a dry dressing. It is okay to shower, do not swim or soak in a tub for two weeks Call for any concerns including fever, increased pain, vomiting, incision redness or drainage. Do not lift more than 5 pounds for two weeks. Walking and stairs are fine. No driving x 1 week velma will be removed at follow-up appt. Do not drive if on narcotic pain meds or if limited by pain. Use ice bag for pain. You have been a prescription for ultram. This can make you constipated. If you do not have a BM daily, take a dose of milk of magnesia at bedtime. [facility]/ Dr. Slade in the Clinic. Keep an ice bag on the incision. 20 minutes on and 20 minutes off. Ice keeps the swelling down and swelling causes pain. Make sure you wrap the ice pack in a towel and don't apply directly to the skin. -No driving x1 week or of you are taking pain medications. -If you have velma or sutures in place, they will be removed at your clinic appointment. -soft diet: No beef/pork raw vegetables x1 -week. Cooked vegetables are fine -no straining to move bowels -pain meds are very constipating: if you do not move your bowels daily take a dose of OTC milk of magnesia -You may find that your appetite is smaller. Eat 3-6 small meals throughout the day. It is important to drink lots of water after surgery, 6-10 glasses a day. -If you were given an incentive spirometry (breathing financial auditor?), continue to do this 10x/hour while awake. -We do want you up walking, at least 5-6 times per day. This is very important to prevent pneumonia and blood clots. You can climb stairs, take them slowly. -No lifting over 5 pounds. This is very important to avoid developing a hernia in your incision. -You may find that you are very tired after surgery- this is normal. -please do not smoke for a minimum of 72 hours after surgery. Gastrointestinal Soft Diet Overview Overview What is a gastrointestinal soft diet? This diet is soft in texture, low in fiber, and easy to digest. The goal is to decrease) in the bowel that may cause and discomfort. This diet is often used after abdominal surgery or as a transitional diet after flares. Meats & Meat Substitutes ? Foods Allowed: Chicken, turkey, fish, tender cuts of beef and pork, ground meats, eggs, creamy nut butters, tofu, skinless hot dogs, sausage patties without whole spices ? Foods to Avoid : Tough, fibrous meats with gristle, meat with casings (hot dogs, sausage, kielbasa), lunch meats with whole spices, shellfish, beans, chunky peanut butter, nuts Fruits and Juices ? Foods Allowed: Fruit juices without pulp, banana, avocado, applesauce, canned peaches and pears, cooked fruit without the skin/seeds ? Foods to Avoid: Juices with pulp, fresh fruit (except banana and avocado), dried fruits, canned fruit cocktail and pineapple, coconut, frozen/thawed berries Vegetables ? Foods Allowed: Well-cooked or canned vegetables, potatoes without skin, tomato sauces, vegetable juice ? Foods to Avoid: Raw vegetables, all corn, all mushrooms, stewed tomatoes, potato skins, stir-tamez vegetables, sauerkraut, pickles, olives, all dried beans, peas, and legumes Cereals and Grains ? Foods Allowed: Low- fiber dry or cooked cereals (less than 2 grams fiber per serving), white rice, pasta, macaroni, or noodles ? Foods to Avoid: Cereals with nuts, berries, dried fruits, whole grain cereals, bran cereals, granola, brown or wild rice, whole grain pasta Breads and Crackers ? Foods Allowed: White/refined breads and rolls, plain bagel, toast, plain crackers, elba crackers ? Foods to Avoid: Whole grain breads- including white whole grain; bread/ rolls with raisins, nuts or seeds, multi-grain crackers Dairy ? Foods Allowed: Milk, cheese, yogurt, milkshakes, pudding, ice cream, cottage cheese, sherbet ; lactose free or low lactose versions if lactose intolerant ? Foods to Avoid: Dairy product mixed with fresh fruit (except banana), berries, nuts or seeds Desserts ? Foods Allowed: Plain cake, pudding, custard, ice cream, sherbet, gelatin, fruit whips ? Foods to Avoid: Any dessert that contains nuts, dried fruits, coconut, or fruits with seeds Herbs and Spices ? Foods Allowed: All ground spices or herbs, salt ? Foods to Avoid: Whole spices such as peppercorns, whole cloves, anise seeds, celery seeds, og, chago seeds, and fresh herbs Snacks/Other Foods ? Foods Allowed: Sugar, honey, jelly, mayonnaise, mustard, soy sauce, oil, butter, margarine, marshmallows, cookies without dried fruits or nuts, snack chips and pretzels using refined flours ? Foods to Avoid: Carbonated beverages, jams or jellies with seeds, popcorn After one week, slowly start to reintroduce the ?Foods to Avoid? back into your diet. Try a small portion of one of these foods each day. If it does not bother you within 24 hours, than you can add in additional high fiber foods. Stand Alone Forms: Nursing Discharge Form Referrals: Tamika Slade MD [ [facility]FF [facility]YSICIAN] - 07/26/19 1:30 pm (Return in 10-14 days for staple removal) Activity:: Do not lift more than 15 pounds Equipment/Supplies:: No Equipment Needed Diet:: Soft/low fiber diet Discharge Orders Discharge Orders: Discharge Order (Routine); Ordered 07/21/19 Ordered By: Nazia Barry Discharge Data Discharge Date/Time-TO BE ENTERED AT DEPARTURE: 07/21/19 18:20 DS: Data Vitals/I&O Vitals and I&O: Vital Signs Temperature 98.6 F 07/21/19 07:18 Temperature Source Tympanic 07/21/19 07:18 Pulse 74 07/21/19 07:18 Pulse Rhythm Regular 07/21/19 04:03 Pulse 62 07/16/19 09:40 Respiratory Rate 17 07/21/19 07:18 Respiratory Effort 07/21/19 04:03 Respiratory Depth Normal 07/21/19 04:03 Respiratory Pattern Normal 07/21/19 04:03 Blood Pressure 159/83 H 07/21/19 07:18 Blood Pressure Mean 106 07/16/19 09:31 Blood Pressure Position Sitting 07/16/19 06:48 Pulse Oximetry 97 07/21/19 07:18 Respiratory End-tidal CO2 15 07/17/19 13:27 Oxygen Delivery Method Room Air 07/21/19 07:18 Oxygen Flow Rate 0 07/21/19 07:18 Pain Level 0 07/21/19 07:18 Comment 07/16/19 10:00 Intake & Output 07/20/19 07/20/19 07/21/19 11:59 23:59 11:59 Intake Total 960 / 3555 2595 / 3555 Output Total 1500 / 4600 3100 / 4600 1700 / 1700 Balance -540 / -1045 -505 / -1045 -1700 / -1700 Intake: IV 960 / 3065 2105 / 3065 Oral 490 / 490 Output: Gastric Drainage 200 / 200 Right Nare 200 / 200 Urine 1500 / 4400 2900 / 4400 1700 / 1700 Other: Urine Color Yellow Yellow Yellow Urine Appearance Clear Clear Clear Urine Odor Normal Normal Voiding Methods Toilet Toilet Toilet [facility] Medical History (Updated 07/29/19 @ 00:01 by JOSE PENA) Acute deep vein thrombosis (DVT) of left lower extremity Femur fracture, right Pulmonary embolism Small bowel obstruction Surgical History (Updated 07/21/19 @ 08:00 by Tamika Slade MD) S/P small bowel resection 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 Documented by User: Nazia BarryDO 07/21/19 17:11 Discharge Plan Disposition Patient Disposition: HOME Condition: Stable Discharge Details Reason For Visit: SMALL BOWEL OBSTRUCTION Admit Date/Time: 07/16/19 08:56 Admit Provider: Tamika Slade Attending Provider: Tamika Slade Primary Care Provider: Edelmira Lara [facility] Course Hospital Course: The patient presented with abdominal pain and CT findings of a small bowel obstruction. Her condition did not improve with 24 hours of NG suctioning. She was taken to the operating room and found to have a single adhesion causing an obstructed/ischemic loop of bowel. This was resected. She tolerated the procedure well. She had an elevation of BUN/cr due to fluid losses from the SBO. This normalized with fluids. Her Simmons was removed on POD 2. Antibiotics were given for 24 hours postop and then discontinued. Her WBC count normalized on POD 2. She was kept on Lovenox for most of the hospitalization with the exception of a 24 hour period around the time of surgery. Her NG output was high the day or two postop. When the output decreased and she passed flatues, it was was removed on POD 3 and a clear liquid diet started. After surgery she did not require any pain medication. She will need a follow up CT of the liver. Home Meds and New Rx's Prescriptions: New tramadol 50 mg tablet 50 mg PO Q6H PRNQty: 20 RF: 0 sennosides-docusate sodium [Senna Plus] 8.6-50 mg tablet 1 tab-cap PO BID Qty: 60 RF: 3 Continued multivitamin [Daily Multi-Vitamin] 1 EACH tablet 1 ea PO DAILY RF: 0 Emergen-C 1,000 mg Powder Effervescent In Packet 1 mg PO DAILY RF: 0 cholecalciferol (vitamin D3) [Vitamin D3] 25 mcg (1,000 unit) Tablet,Chewable 1 unit PO DAILY RF: 0 Eliquis 5 mg tablet 5 mg PO BID Qty: 60 RF: 0 Discharge Instructions Additional Instructions: The incision can be left open to air or covered with a dry dressing. It is okay to shower, do not swim or soak in a tub for two weeks Call for any concerns including fever, increased pain, vomiting, incision redness or drainage. Do not lift more than 5 pounds for two weeks. Walking and stairs are fine. No driving x 1 week velma will be removed at follow-up appt. Do not drive if on narcotic pain meds or if limited by pain. Use ice bag for pain. You have been a prescription for ultram. This can make you constipated. If you do not have a BM daily, take a dose of milk of magnesia at bedtime. F/u Friday in [facility] 1:30pm W/ Dr. Slade in the Clinic. Keep an ice bag on the incision. 20 minutes on and 20 minutes off. Ice keeps the swelling down and swelling causes pain. Make sure you wrap the ice pack in a towel and don't apply directly to the skin. -No driving x1 week or of you are taking pain medications. -If you have velma or sutures in place, they will be removed at your clinic appointment. -soft diet: No beef/pork raw vegetables x1 -week. Cooked vegetables are fine -no straining to move bowels -pain meds are very constipating: if you do not move your bowels daily take a dose of OTC milk of magnesia -You may find that your appetite is smaller. Eat 3-6 small meals throughout the day. It is important to drink lots of water after surgery, 6-10 glasses a day. -If you were given an incentive spirometry (breathing financial auditor?), continue to do this 10x/hour while awake. -We do want you up walking, at least 5-6 times per day. This is very important to prevent pneumonia and blood clots. You can climb stairs, take them slowly. -No lifting over 5 pounds. This is very important to avoid developing a hernia in your incision. -You may find that you are very tired after surgery- this is normal. -please do not smoke for a minimum of 72 hours after surgery. Gastrointestinal Soft Diet Overview Overview What is a gastrointestinal soft diet? This diet is soft in texture, low in fiber, and easy to digest. The goal is to decrease) in the bowel that may cause and discomfort. This diet is often used after abdominal surgery or as a transitional diet after flares. Meats & Meat Substitutes ? Foods Allowed: Chicken, turkey, fish, tender cuts of beef and pork, ground meats, eggs, creamy nut butters, tofu, skinless hot dogs, sausage patties without whole spices ? Foods to Avoid : Tough, fibrous meats with gristle, meat with casings (hot dogs, sausage, kielbasa), lunch meats with whole spices, shellfish, beans, chunky peanut butter, nuts Fruits and Juices ? Foods Allowed: Fruit juices without pulp, banana, avocado, applesauce, ca nned peaches and pears, cooked fruit without the skin/seeds ? Foods to Avoid: Juices with pulp, fresh fruit (except banana and avocado), dried fruits, canned fruit cocktail and pineapple, coconut, frozen/thawed berries Vegetables ? Foods Allowed: Well-cooked or canned vegetables, potatoes without skin, tomato sauces, vegetable juice ? Foods to Avoid: Raw vegetables, all corn, all mushrooms, stewed tomatoes, potato skins, stir-tamez vegetables, sauerkraut, pickles, olives, all dried beans, peas, and legumes Cereals and Grains ? Foods Allowed: Low- fiber dry or cooked cereals (less than 2 grams fiber per serving), white rice, pasta, macaroni, or noodles ? Foods to Avoid: Cereals with nuts, berries, dried fruits, whole grain cereals, bran cereals, granola, brown or wild rice, whole grain pasta Breads and Crackers ? Foods Allowed: White/refined breads and rolls, plain bagel, toast, plain crackers, elba crackers ? Foods to Avoid: Whole grain breads- including white whole grain; bread/ roll s with raisins, nuts or seeds, multi-grain crackers Dairy ? Foods Allowed: Milk, cheese, yogurt, milkshakes, pudding, ice cream, cottage cheese, sherbet ; lactose free or low lactose versions if lactose intolerant ? Foods to Avoid: Dairy product mixed with fresh fruit (except banana), berries, nuts or seeds Desserts ? Foods Allowed: Plain cake, pudding, custard, ice cream, sherbet, gelatin, fruit whips ? Foods to Avoid: Any dessert that contains nuts, dried fruits, coconut, or fruits with seeds Herbs and Spices ? Foods Allowed: All ground spices or herbs, salt ? Foods to Avoid: Whole spices such as peppercorns, whole cloves, anise seeds, celery seeds, og, chago seeds, and fresh herbs Snacks/Other Foods ? Foods Allowed: Sugar, honey, jelly, mayonnaise, mustard, soy sauce, oil, butter, margarine, marshmallows, cookies without dried fruits or nuts, snack chips and pretzels using refined flours ? Foods to Avoid: Carbonated beverages, jams or jellies with seeds, popcorn After one week, slowly start to reintroduce the ?Foods to Avoid? back into your diet. Try a small portion of one of these foods each day. If it does not bother you within 24 hours, than you can add in additional high fiber foods. Stand Alone Forms: Nursing Discharge Form Referrals: Tamika Slade MD [ [facility]FF PHYSICIAN] - 07/26/19 1:30 pm (Return in 10-14 days for staple removal) Activity:: Do not lift more than 15 pounds Equipment/Supplies:: No Equipment Needed Diet:: Soft/low fiber diet Discharge Orders Discharge Orders: Discharge Order (Routine); Ordered 07/21/19 Ordered By: Nazia Barry Discharge Data Discharge Date/Time-TO BE ENTERED AT DEPARTURE: 07/21/19 18:20 DS: Summary Status at Discharge Functional status at discharge: independent ambulation Overall status at discharge: patient is back to baseline Mental Status: mental status grossly normal Speech and Movement: speech and movement normal Mood: congruent mood Affect: normal affect Exam Psych Mental Status: mental status grossly normal Speech and Movement: speech and movement normal Mood: congruent mood Affect: normal affect [facility] Medical History (Updated 07/29/19 @ 00:01 by JOSE PENA) Acute deep vein thrombosis (DVT) of left lower extremity Femur fracture, right Pulmonary embolism Small bowel obstruction Surgical History (Updated 07/21/19 @ 08:00 by Tamika Slade MD) S/P small bowel resection 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
[2019-07-21] MEDS: Normal Saline 1,000 ML 100 ML IV (09:04)
--- NOTE | 2019-07-21 10:41 | W.PM.PROGNOT ---
Date of Service Date of service: 07/21/19 Time of Service: 10:41 Assessment and Plan Assessment and plan (1) S/P small bowel resection: Status: Acute Assessment and plan: POD #4. doing well. pain controlled w/ tylenol. pt states she is not suppose to take tylenol for a liver lesion. 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 plan d/c home- see dc summary Rx ultam #20. stool softners prn F/u dr russell on friday. (2) Liver lesion: Status: Acute Assessment and plan: appears to be benign pt does not want to use tylenol. prob should not be on NSAID's b/c of blood thinners (3) Bilateral pulmonary embolism: Status: Acute Assessment and plan: ok to resume ellquis no signs of PE's on repeat CT. She has a fam hx of hypercoag d/o. Subjective Subjective Interval history since last seen: Pt seen and examined. She is doing well. no headaches. No CP or SOB. no productive cough. no dysuria. no leg pain or swelling. She is tolerating clears w/out a problem. She's had a BM w/ no bleeding. no fevers. minimal pain. She notes she is very tired. She has been up walking. She has minimal pain. Exam Const General: cooperative, healthy appearing, comfortable, no acute distress, well developed and well groomed Nutritional Appearance: average body habitus and well nourished Orientation: alert, awake and oriented x3 HENMT Head: normal to inspection, normocephalic and atraumatic Ears: hearing grossly normal bilaterally and external ears normal General nose exam: external nose normal Face and sinus: normal facial exam and sinuses nontender Mouth: oral mucosae normal, lip normal, tongue normal and moist mucous membranes Teeth and gingiva: dentition normal Eyes General: appearance normal, both eyes and all related structures Conjunctivae: conjunctivae normal Sclera: sclerae normal Pupils: PERRL Neck Neck: normal visual inspection and full ROM Chest Chest: normal inspection of the chest Resp Effort & Inspection: normal respiratory effort, able to speak in complete sentences, no cough, no nasal flaring, not tachypneic and no use of accessory muscles Auscultation: clear to auscultation bilaterally, no rales, no rhonchi and no wheezes Cardio Jugular venous pressure: no JVD Rate: regular rate Rhythm: regular rhythm GI Inspection: normal to inspection, no edema, non-distended and incision (C/D/I. no redness of drainage ) Palpation: soft, no masses, tender (minimal ) and No ascites Auscultation: normal bowel sounds Skin General skin exam: no rashes or lesions noted Trauma: no lacerations or abrasions Other: no breakdown Neuro General: patient alert, patient oriented x3, oriented, gait normal, moves all extremities, no focal motor deficits and CN's II-XI intact bilaterally Cognition: normal cognition Speech: speech normal Gait: normal gait Motor: muscle tone normal throughout Extrem General: normal to inspection, full ROM and no clubbing, cyanosis or edema Psych Appearance: grossly normal and well kempt Mental Status: mental status grossly normal Speech and Movement: speech and movement normal Affect: normal affect Objective Objective Clinical Data: Vital Signs Temperature 37.0 C 07/21/19 07:18 Temperature Source Tympanic 07/21/19 07:18 Pulse 74 07/21/19 07:18 Pulse Rhythm Regular 07/21/19 09:14 Pulse 62 07/16/19 09:40 Respiratory Rate 17 07/21/19 07:18 Respiratory Effort 07/21/19 09:14 Respiratory Depth Normal 07/21/19 09:14 Respiratory Pattern Normal 07/21/19 09:14 Blood Pressure 159/83 H 07/21/19 07:18 Blood Pressure Mean 106 07/16/19 09:31 Blood Pressure Position Sitting 07/16/19 06:48 Pulse Oximetry 97 07/21/19 07:18 Respiratory End-tidal CO2 15 07/17/19 13:27 Oxygen Delivery Method Room Air 07/21/19 07:18 Oxygen Flow Rate 0 07/21/19 07:18 Pain Level 0 07/21/19 07:18 Comment 07/16/19 10:00 Intake & Output 07/20/19 07/20/19 07/21/19 11:59 23:59 11:59 Intake Total 960 / 3555 2595 / 3555 0 / 1910 Output Total 1500 / 4600 3100 / 4600 1700 / 1700 Balance -540 / -1045 -505 / -1045 210 / 210 Intake: IV 960 / 3065 2105 / 3065 1090 / 1090 Oral 490 / 490 820 / 820 Output: Gastric Drainage 200 / 200 Right Nare 200 / 200 Urine 1500 / 4400 2900 / 4400 1700 / 1700 Other: Urine Color Yellow Yellow Yellow Urine Appearance Clear Clear Clear Urine Odor Normal Normal Voiding Methods Toilet Toilet Toilet Laboratory Results WBC 9.07 k/cumm (4.4-10.8) D 07/19/19 06:25 RBC 3.53 m/cumm (4.00-5.20) L 07/19/19 06:25 Hgb 10.0 g/dL (12.0-15.5) L 07/19/19 06:25 Hct 31.3 % (36.0-46.0) L 07/19/19 06:25 MCV 88.7 fL (80-95) 07/19/19 06:25 MCH 28.3 pg (27.0-33.0) 07/19/19 06:25 MCHC 31.9 g/dL (32.0-36.0) L 07/19/19 06:25 RDW 14.8 % (11.7-14.6) H 07/19/19 06:25 Plt Count 180 x1000/uL (130-400) 07/19/19 06:25 MPV 9.8 fL (8.0-11.0) 07/19/19 06:25 Immature Gran % 0.2 % 07/19/19 06:25 Neutrophils % 67.9 07/19/19 06:25 Lymphocytes % 24.7 07/19/19 06:25 Monocytes % 7.2 07/19/19 06:25 Eosinophils % 0.0 07/19/19 06:25 Basophils % 0.0 07/19/19 06:25 Absolute Neutrophils 6.16 k/cumm (1.2-6.7) 07/19/19 06:25 Absolute Lymphocytes 2.24 k/cumm (1.2-3.4) 07/19/19 06:25 Absolute Monocytes 0.65 k/cumm (0.11-0.7) 07/19/19 06:25 Absolute Eosinophils 0.00 k/cumm (0.0-0.7) 07/19/19 06:25 Absolute Basophils 0.00 k/cumm (0.0-0.2) 07/19/19 06:25 PT 10.6 sec (9.3-11.0) 07/16/19 06:58 INR 1.1 (0.9-1.1) 07/16/19 06:58 APTT 22.6 sec (21.0-31.4) 07/16/19 06:58 Sodium 143 mmol/L (136-145) 07/19/19 06:25 Potassium 3.2 mmol/L (3.5-5.1) L 07/19/19 06:25 Chloride 108 mmol/L (98-107) H 07/19/19 06:25 Carbon Dioxide 27.1 mmol/L (21.0-32.0) 07/19/19 06:25 Anion Gap 7.9 mmol/L (3-11) 07/19/19 06:25 BUN 14 mg/dL (7-18) D 07/19/19 06:25 Creatinine 0.67 mg/dL (0.55-1.02) 07/19/19 06:25 Estimated GFR/1.73 m2 >= 60.00 (mL/min/1.73m2) 07/19/19 06:25 Glucose 91 mg/dL (74-106) 07/19/19 06:25 Lactate 2.9 mmol/L (0.6-1.4) H* 07/16/19 06:58 Calcium 7.7 mg/dL (8.5-10.1) L 07/19/19 06:25 Total Bilirubin 0.7 mg/dL (0.2-1.0) 07/16/19 06:58 AST 21 U/L (15-37) 07/16/19 06:58 ALT 27 U/L (14-59) 07/16/19 06:58 Alkaline Phosphatase 77 U/L (46-116) 07/16/19 06:58 Troponin I < 0.05 ng/Ml (<0.06) 07/16/19 06:58 Total Protein 8.5 g/dL (6.4-8.2) H 07/16/19 06:58 Albumin 4.2 g/dL (3.4-5.0) 07/16/19 06:58 Lipase 133 U/L (73-393) 07/16/19 06:58 Urine Color Yellow (Yellow) 07/16/19 08:20 Urine Clarity Clear (Clear) 07/16/19 08:20 Urine pH 7.5 (5-8) 07/16/19 08:20 Ur Specific [place] 1.020 (1.005-1.025) 07/16/19 08:20 Urine Protein Negative mg/dL (Negative) 07/16/19 08:20 Urine Ketones 40 mg/dL (Negative) H 07/16/19 08:20 Urine Blood Trace-intact (Negative) H 07/16/19 08:20 Urine Nitrite Negative (Negative) 07/16/19 08:20 Urine Bilirubin Negative (Negative) 07/16/19 08:20 Urine Urobilinogen 0.2 EU/dL (Up TO 0.2) 07/16/19 08:20 Ur Leukocyte Esterase Negative (Negative) 07/16/19 08:20 Urine RBC 3-5 HPF (0-2) H 07/16/19 08:20 Urine WBC 0-2 HPF (0-5) 07/16/19 08:20 Ur Epithelial Cells Rare HPF (Negative) 07/16/19 08:20 Urine Crystals Moderate amorphous HPF (Negative) 07/16/19 08:20 Urine Bacteria Not Applicable 07/16/19 08:20 Urine Mucus Not Applicable 07/16/19 08:20 Ur Culture Indicated? No 07/16/19:20 Urine Glucose Negative mg/dL (Negative) 07/16/19 08:20
[2019-07-21] MEDS: POTASSIUM CHLORIDE 10 MEQ/100 ML BAG 100 MEQ IVPB ×2 (11:16→12:38)
[2019-07-21 11:31] VITALS: BP 169/86; PULSE 72; RESP 17; TEMP 37.4; O2SAT 98
--- NOTE | 2019-07-21 13:20 | CHAPLAIN ---
Sahron said she continues to feel better and expects to be discharged today. Today is her 's birthday, so she looking forward to being home with him
[2019-07-21] MEDS: Apixaban 5 MG TAB PO (14:36)
--- NOTE | 2019-07-21 15:13 | W.PM.DS.N ---
Date of service: 07/21/19 Time of Service: 15:13 DS: Diagnosis Discharge Diagnosis (1) S/P small bowel resection: Status: Acute (2) Small bowel obstruction: Status: Inactive (3) Liver lesion: Status: Acute (4) Bilateral pulmonary embolism: Status: Acute Discharge Plan Disposition Patient Disposition: HOME Condition: Stable Discharge Details Chief Complaint: Abd Prob Clinical Impression: Small bowel obstruction Reason For Visit: SMALL BOWEL OBSTRUCTION Admit Date/Time: 07/16/19 08:56 Admit Provider: Tamika Slade Attending Provider: Tamika Salde Primary Care Provider: Edelmira Lara ED Provider: Lorene Holland Hospital Course Hospital Course: The patient presented with abdominal pain and CT findings of a small bowel obstruction. Her condition did not improve with 24 hours of NG suctioning. She was taken to the operating room and found to have a single adhesion causing an obstructed/ischemic loop of bowel. This was resected. She tolerated the procedure well. She had an elevation of BUN/cr due to fluid losses from the SBO. This normalized with fluids. Her Simmons was removed on POD 2. Antibiotics were given for 24 hours postop and then discontinued. Her WBC count normalized on POD 2. She was kept on Lovenox for most of the hospitalization with the exception of a 24 hour period around the time of surgery. Her NG output was high the day or two postop. When the output decreased and she passed flatues, it was was removed on POD 3 and a clear liquid diet started. After surgery she did not require any pain medication. She will need a follow up CT of the liver. Home Meds and New Rx's Prescriptions: New tramadol 50 mg tablet 50 mg PO Q6H PRNQty: 20 RF: 0 sennosides-docusate sodium [Senna Plus] 8.6-50 mg tablet 1 tab-cap PO BID Qty: 60 RF: 3 tramadol 50 mg tablet 50 mg PO Q6H PRNQty: 20 RF: 0 sennosides-docusate sodium [Senna Plus] 8.6-50 mg tablet 1 tab-cap PO BID Qty: 60 RF: 3 Continued multivitamin [Daily Multi-Vitamin] 1 EACH tablet 1 ea PO DAILY RF: 0 Emergen-C 1,000 mg Powder Effervescent In Packet 1 mg PO DAILY RF: 0 cholecalciferol (vitamin D3) [Vitamin D3] 25 mcg (1,000 unit) Tablet,Chewable 1 unit PO DAILY RF: 0 Eliquis 5 mg tablet 5 mg PO BID Qty: 60 RF: 0 Discharge Instructions Additional Instructions: The incision can be left open to air or covered with a dry dressing. It is okay to shower, do not swim or soak in a tub for two weeks Call for any concerns including fever, increased pain, vomiting, incision redness or drainage. Do not lift more than 5 pounds for two weeks. Walking and stairs are fine. No driving x 1 week velma will be removed at follow-up appt. Do not drive if on narcotic pain meds or if limited by pain. Use ice bag for pain. You have been a prescription for ultram. This can make you constipated. If you do not have a BM daily, take a dose of milk of magnesia at bedtime. F/u Friday in [facility] 1:30pm W/ Dr. Slade in the Clinic. Keep an ice bag on the incision. 20 minutes on and 20 minutes off. Ice keeps the swelling down and swelling causes pain. Make sure you wrap the ice pack in a towel and don't apply directly to the skin. -No driving x1 week or of you are taking pain medications. -If you have velma or sutures in place, they will be removed at your clinic appointment. -soft diet: No beef/pork raw vegetables x1 -week. Cooked vegetables are fine -no straining to move bowels -pain meds are very constipating: if you do not move your bowels daily take a dose of OTC milk of magnesia -You may find that your appetite is smaller. Eat 3-6 small meals throughout the day. It is important to drink lots of water after surgery, 6-10 glasses a day. -If you were given an incentive spirometry (breathing equipment service technician?), continue to do this 10x/hour while awake. -We do want you up walking, at least 5-6 times per day. This is very important to prevent pneumonia and blood clots. You can climb stairs, take them slowly. -No lifting over 5 pounds. This is very important to avoid developing a hernia in your incision. -You may find that you are very tired after surgery- this is normal. -please do not smoke for a minimum of 72 hours after surgery. Gastrointestinal Soft Diet Overview Overview What is a gastrointestinal soft diet? This diet is soft in texture, low in fiber, and easy to digest. The goal is to decrease) in the bowel that may cause and discomfort. This diet is often used after abdominal surgery or as a transitional diet after flares. Meats & Meat Substitutes ? Foods Allowed: Chicken, turkey, fish, tender cuts of beef and pork, ground meats, eggs, creamy nut butters, tofu, skinless hot dogs, sausage patties without whole spices ? Foods to Avoid : Tough, fibrous meats with gristle, meat with casings (hot dogs, sausage, kielbasa), lunch meats with whole spices, shellfish, beans, chunky peanut butter, nuts Fruits and Juices ? Foods Allowed: Fruit juices without pulp, banana, avocado, applesauce, canned peaches and pears, cooked fruit without the skin/seeds ? Foods to Avoid: Juices with pulp, fresh fruit (except banana and avocado), dried fruits, canned fruit cocktail and pineapple, coconut, frozen/thawed berries Vegetables ? Foods Allowed: Well-cooked or canned vegetables, potatoes without skin, tomato sauces, vegetable juice ? Foods to Avoid: Raw vegetables, all corn, all mushrooms, stewed tomatoes, potato skins, stir-tamez vegetables, sauerkraut, pickles, olives, all dried beans, peas, and legumes Cereals and Grains ? Foods Allowed: Low- fiber dry or cooked cereals (less than 2 grams fiber per serving), white rice, pasta, macaroni, or noodles ? Foods to Avoid: Cereals with nuts, berries, dried fruits, whole grain cereals, bran cereals, granola, brown or wild rice, whole grain pasta Breads and Crackers ? Foods Allowed: White/refined breads and rolls, plain bagel, toast, plain crackers, elba crackers ? Foods to Avoid: Whole grain breads- including white whole grain; bread/ rolls with raisins, nuts or seeds, multi-grain crackers Dairy ? Foods Allowed: Milk, cheese, yogurt, milkshakes, pudding, ice cream, cottage cheese, sherbet ; lactose free or low lactose versions if lactose intolerant ? Foods to Avoid: Dairy product mixed with fresh fruit (except banana), berries, nuts or seeds Desserts ? Foods Allowed: Plain cake, pudding, custard, ice cream, sherbet, gelatin, fruit whips ? Foods to Avoid: Any dessert that contains nuts, dried fruits, coconut, or fruits with seeds Herbs and Spices ? Foods Allowed: All ground spices or herbs, salt ? Foods to Avoid: Whole spices such as peppercorns, whole cloves, anise seeds, celery seeds, og, chago seeds, and fresh herbs Snacks/Other Foods ? Foods Allowed: Sugar, honey, jelly, mayonnaise, mustard, soy sauce, oil, butter, margarine, marshmallows, cookies without dried fruits or nuts, snack chips and pretzels using refined flours ? Foods to Avoid: Carbonated beverages, jams or jellies with seeds, popcorn After one week, slowly start to reintroduce the ?Foods to Avoid? back into your diet. Try a small portion of one of these foods each day. If it does not bother you within 24 hours, than you can add in additional high fiber foods. Stand Alone Forms: Nursing Discharge Form Referrals: Tamika Slade MD [ [facility] STAFF PHYSICIAN] - 07/27/19 (Return in 10-14 days for staple removal) Activity:: Do not lift more than 15 pounds Equipment/Supplies:: No Equipment Needed Diet:: Soft/low fiber diet DS: Summary Status at Discharge Functional status at discharge: independent ambulation Overall status at discharge: patient is back to baseline Mental Status: mental status grossly normal Speech and Movement: speech and movement normal Mood: congruent mood Affect: normal affect Exam Psych Mental Status: mental status grossly normal Speech and Movement: speech and movement normal Mood: congruent mood Affect: normal affect DS: Data Vitals/I&O Vitals and I&O: Vital Signs Temperature 37.4 C 07/21/19 11:31 Temperature Source Tympanic 07/21/19 11:31 Pulse 72 07/21/19 11:31 Pulse Rhythm Regular 07/21/19 09:14 Pulse 62 07/16/19 09:40 Respiratory Rate 17 07/21/19 11:31 Respiratory Effort 07/21/19 09:14 Respiratory Depth Normal 07/21/19 09:14 Respiratory Pattern Normal 07/21/19 09:14 Blood Pressure 169/86 H 07/21/19 11:31 Blood Pressure Mean 106 07/16/19 09:31 Blood Pressure Position Sitting 07/16/19 06:48 Pulse Oximetry 98 07/21/19 11:31 Respiratory End-tidal CO2 15 07/17/19 13:27 Oxygen Delivery Method Room Air 07/21/19 11:31 Oxygen Flow Rate 0 07/21/19 11:31 Pain Level 8 07/21/19 11:31 Comment 07/21/19 11:31 Intake & Output 07/20/19 07/21/19 07/21/19 23:59 11:59 23:59 Intake Total 2595 / 3555 1910 / 2830 920 / 2830 Output Total 3100 / 4600 1700 / 1700 Balance -505 / -1045 210 / 1130 920 / 1130 Intake: IV 2105 / 3065 1090 / 1760 670 / 1760 Oral 490 / 490 820 / 1070 250 / 1070 Output: Gastric Drainage 200 / 200 Right Nare 200 / 200 Urine 2900 / 4400 1700 / 1700 Other: Urine Color Yellow Yellow Urine Appearance Clear Clear Urine Odor Normal Normal Stool Size Small Stool Characteristics Brown Bloody Voiding Methods Toilet Toilet [facility] Medical History (Updated 07/21/19 @ 08:00 by Tamika Slade MD) Acute deep vein thrombosis (DVT) of left lower extremity (Inactive) Femur fracture, right (Acute) Pulmonary embolism (Chronic) Small bowel obstruction (Inactive) Surgical History (Updated 07/21/19 @ 08:00 by Tamika Slade MD) S/P small bowel resection (Acute) Status post total right knee replacement (Inactive) 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
[2019-07-21 16:06] VITALS: BP 150/77; PULSE 75; RESP 18; TEMP 36.1; O2SAT 97
[2019-07-21] MEDS: Pantoprazole 40 MG VIAL IVP (16:20)
[2019-07-21] MEDS: Normal Saline Flush 10 ML SYR IVP (16:25)
--- NOTE | 2019-07-21 16:43 | PDOC.CMDIS ---
- If Service Date Differs Date of service: 07/21/19 Time of Service: 16:44 LACE Index Scoring Tool - Questions: Length of Stay (in days): 4 - 6 Acuity (Admit via E.D.?): Yes E.D. Visits: 2 - Answers: Total Score: 9 Risk of Readmission: Low Risk Care Management Discharge Reason for Hospitalization: Small bowel obstruction. Discharge Plan: Sharon will be discharged home with no new services. She will transport via private vehicle with her and follow up with her surgeon, PCP and discharge plan of care. Patient/Family Education Needs: Discharge plan, limitations, follow up plan and Ask Me Three.
== END 2019-07-21 18:20 | disposition home or self-care (01) | DRG 329 ==
LOC: ER 09:24 → MS 10:06
PROVIDERS: Student in an Organized Health Care Education/Training Program; Admitting Provider Surgery; Emergency Provider Physician Assistant; PCP Family Medicine; Visit Provider Surgery
PROC: 0DT80ZZ Resection of Small Intestine, Open Approach (ICD-10-PCS; CPT 49000; principal; 2019-07-17 11:00)
DX: K56.50 Intestinal adhesions [bands], unspecified as to partial versus complete obstruction (principal); K55.011 Focal (segmental) acute (reversible) ischemia of small intestine; Z86.711 Personal history of pulmonary embolism; Z79.01 Long term (current) use of anticoagulants; K76.9 Liver disease, unspecified; E87.6 Hypokalemia; Z83.2 Family history of diseases of the blood and blood-forming organs and certain disorders involving the immune mechanism; Z23 Encounter for immunization
CPT/HCPCS: 44120; 36415; 74177; 80048; 80053; 83690; 93005; 99223; 99233; 99238; 99239; 99285; NC; 71260; 81003; 81015; 83605; 84484; 85018; 85025; 85610; 85730; 88304; 88307; 93010; 99284; J0131; J0690; J0780; J1100; J1650; J1885; J2001; J2405; J2543; J2704; J3480; J3490

== ENCOUNTER 2019-07-30 03:03 | Outpatient (CLI) | payer OTHER, SELFPAY ==
--- NOTE | 2019-07-30 06:15 | DI.CT_ITS ---
EXAM: CT ABDOMEN WO/W CLINICAL HISTORY: Liver Lesion,k76.9 TECHNIQUE: Images were performed from the lung bases through the through the aortic bifurcation befo re IV contrast, during arterial and venous phases as well as delayed phase. Oral contrast was also a dministered. COMPARISON: CT CHEST PE CTA from 06/28/2019 CT CHEST/ABD/PEL W from 07/16/2019 FINDINGS: There is an area low attenuation on precontrast images seen in the posterior right lobe of the liver measuring 4.5 x 5 x 6.3 cm. The arterial phase images show some peripheral contrast puddling. The re is nearly complete filling of the lesion on delayed phase images. The findings are consistent wit h a hemangioma. No additional liver lesions are seen. The lung bases are clear. The gallbladder, s pleen, pancreas, adrenals and kidneys are unremarkable. The aorta is normal in diameter. Degenerati ve changes are seen in the lumbar spine. A bowel anastomosis is seen in the left upper quadrant. Th ere is no evidence of obstruction. IMPRESSION: Liver lesion is consistent with a hemangioma.
[2019-07-30] MEDS: Breeza Beverage 473 ML BTL PO (07:20)
[2019-07-30] MEDS: Omnipaque 350 MG/ML 50 ML BTL PO (07:21)
[2019-07-30] MEDS: Omnipaque 350 MG/ML 100 ML BTL IV (08:52)
[2019-07-30] MEDS: Normal Saline - Diluent 50 ML VIAL IV (08:54)
[2019-07-30] MEDS: Normal Saline Flush 10 ML SYR IVP (08:54)
== END 2019-07-30 03:23 ==
PROVIDERS: PCP Family Medicine; Visit Provider Surgery
DX: K76.89 Other specified diseases of liver (principal); D18.03 Hemangioma of intra-abdominal structures
CPT/HCPCS: 74170; J3490; Q9967

== ENCOUNTER 2020-02-02 02:46 | Outpatient (CLI) | payer OTHER, SELFPAY ==
--- NOTE | 2020-02-02 07:55 | DI.MAMMO_ITS ---
EXAM: MG MAMMO SCREENING CLINICAL HISTORY: SCREENING,Z12.39 TECHNIQUE: Mammograms were interpreted according to the usual protocol including computer analysis w [employer] CAD system, tomosynthesis and C-view imaging. COMPARISON: FINDINGS: The breasts are heterogeneously dense. No dominant mass or clumped microcalcification is identified in either breast. The current examination is compared with previous examinations including November 24 and there has been no gross interval change in appearance in comparison with the prior studies. IMPRESSION: No specific evidence of malignancy at this time. Routine screening examinations are suggested at yea rly intervals in this age group according to the ACS ACR guidelines. BI-RADS Category 1 - Negative Breast Density - Category C - Heterogeneously dense
== END 2020-02-02 03:06 ==
PROVIDERS: PCP Family Medicine; Visit Provider Family Medicine
DX: Z12.31 Encounter for screening mammogram for malignant neoplasm of breast (principal)
CPT/HCPCS: 77063; 77067

== ENCOUNTER 2020-02-07 18:55 | Outpatient (REF) | payer OTHER, SELFPAY ==
[2020-02-07 21:17] LABS: Abs Immature Grans 0.01 10^3/uL (0.0-0.06); Absolute Basophil Count 0.04 10^3/uL (0.0-0.2); Absolute Eosinophil Count 0.04 10^3/uL (0.0-0.7); Absolute Lymphocyte Count 2.43 10^3/uL (1.2-3.4); Absolute Monocyte Count 0.45 10^3/uL (0.1-0.8); Absolute Neutrophil Count 4.76 10^3/uL (1.2-6.7); Basophils % 0.5; Eosinophils % 0.5; HCT 38.9 % (36.0-46.0); HGB 12.6 g/dL (11.2-15.7); Immature Grans % 0.1; Lymphocytes % 31.4; MCH 28.1 pg (27.0-33.0); MCHC 32.4 % (32.0-36.0); MCV 86.8 fL (80-95); MPV 11.8 fL (8.0-11.0); Monocytes % 5.8; Neutrophils % 61.7; Nucleated RBC 0 %; Platelet Count 199 10^3/uL (130-400); RBC 4.48 10^6/uL (3.93-5.22); RDW 13.8 % (11.7-14.6); RDW-SD 44.2 fL; WBC 7.73 10^3/uL (4.4-10.8)
== END 2020-02-07 19:15 ==
LOC: NCHCN 18:55
PROVIDERS: PCP Family Medicine; Visit Provider Internal Medicine
DX: I10 Essential (primary) hypertension (principal); I26.99 Other pulmonary embolism without acute cor pulmonale
CPT/HCPCS: 80048; 85025

== ENCOUNTER 2020-02-11 15:53 | Outpatient (REF) | payer OTHER, SELFPAY ==
[2020-02-11 21:05] LABS: BUN 25 mg/dL (7-18); CREATININE 1.08 mg/dL (0.55-1.02); Calcium 9.1 mg/dL (8.5-10.1); Chloride 102 mmol/L (98-107); Estimated GFR 50.45 (mL/min/1.73m2); Glucose 141 mg/dL (74-106); Potassium 3.6 mmol/L (3.5-5.1); Sodium 141 mmol/L (136-145)
== END 2020-02-11 16:13 ==
LOC: NCHCN 15:53
PROVIDERS: PCP Family Medicine; Visit Provider Family Medicine
DX: I26.99 Other pulmonary embolism without acute cor pulmonale (principal)
CPT/HCPCS: 80048

== ENCOUNTER 2021-01-04 10:40 | Outpatient (REF) | payer MEDICARE, SELFPAY ==
[2021-01-04 16:01] LABS: HGB 13.4 g/dL (11.2-15.7); MCH 28.5 pg (27.0-33.0); MCHC 31.9 % (32.0-36.0); MCV 89.4 fL (80-95); MPV 11.2 fL (8.0-11.0); Platelet Count 219 10^3/uL (130-400); RDW 13.4 % (11.7-14.6); RDW-SD 44.1 fL; WBC 5.69 10^3/uL (4.4-10.8)
[2021-01-04 16:48] LABS: Vitamin D 25 Total 42.7 ng/mL (30-100)
[2021-01-04 16:49] LABS: ALT 24 U/L (14-59); AST 18 U/L (15-37); Albumin 4.2 g/dL (3.4-5.0); Alkaline Phosphatase 76 U/L (46-116); Anion Gap 9.3 mmol/L (3-11); BUN 16 mg/dL (7-18); Bilirubin, Total 0.4 mg/dL (0.2-1.0); CO2 27.7 mmol/L (21.0-32.0); CREATININE 0.9 mg/dL (0.55-1.02); Calcium 9.3 mg/dL (8.5-10.1); Calculated LDL 103 mg/dL (<100); Chloride 102 mmol/L (98-107); Cholesterol 183 mg/dL (<200); Glucose 101 mg/dL (74-106); HDL Cholesterol 69 mg/dL (40-60); Sodium 139 mmol/L (136-145); Total Protein 7.7 g/dL (6.4-8.2); Triglyceride 59 mg/dL (<150)
== END 2021-01-04 10:41 | disposition home or self-care (01) ==
LOC: NCHCN 10:40
PROVIDERS: PCP Family Medicine; Visit Provider Family Medicine
DX: I10 Essential (primary) hypertension (principal); I26.99 Other pulmonary embolism without acute cor pulmonale; Z00.00 Encounter for general adult medical examination without abnormal findings
CPT/HCPCS: 80053; 80061; 82306; 85027

== ENCOUNTER 2022-02-25 13:43 | Outpatient (REF) | payer MEDICARE, SELFPAY ==
[2022-02-25 15:19] LABS: ALT 20 U/L (14-59); AST 19 U/L (15-37); Albumin 4.1 g/dL (3.4-5.0); Alkaline Phosphatase 69 U/L (46-116); Anion Gap 6.8 mmol/L (3-11); BUN 14 mg/dL (7-18); Bilirubin, Total 0.4 mg/dL (0.2-1.0); CO2 29.2 mmol/L (21.0-32.0); CREATININE 0.9 mg/dL (0.55-1.02); Calcium 9.3 mg/dL (8.5-10.1); Calculated LDL 93 mg/dL (<100); Chloride 101 mmol/L (98-107); Cholesterol 169 mg/dL (<200); Estimated GFR 68.77 (mL/min/1.73m2); Glucose 111 mg/dL (74-106); HDL Cholesterol 65 mg/dL (40-60); Potassium 4.7 mmol/L (3.5-5.1); Sodium 137 mmol/L (136-145); Total Protein 7.6 g/dL (6.4-8.2); Triglyceride 55 mg/dL (<150)
== END 2022-02-25 13:44 | disposition home or self-care (01) ==
LOC: NCHCN 13:43
PROVIDERS: PCP Family Medicine; Visit Provider Family Medicine
DX: I10 Essential (primary) hypertension (principal)
CPT/HCPCS: 80053; 80061

== ENCOUNTER → 2022-03-04 02:32 | Outpatient (CLI) | payer MEDICARE, SELFPAY ==
--- NOTE | 2022-03-04 12:10 | DI.MAMMO_ITS ---
Exam(s) MAMMO SCREENING EXAM: MAMMO SCREENING CLINICAL HISTORY: SCREENING FOR BREAST CANCER Z12.31 TECHNIQUE: Mammograms were interpreted according to the usual protocol including computer analysis w [employer] CAD system, tomosynthesis and C-view imaging. COMPARISON: 2014 through 2019 5 FINDINGS: The breasts are composed of heterogeneously dense fibroglandular densities, Breast Density category C . No suspicious masses or suspicious microcalcifications are seen. Post biopsies scarring in the subar eolar region of the left breast. Scattered benign calcifications are present. No skin thickening or abnormal axillary lymph nodes are seen. There has been no significant change from prior exams. IMPRESSION: BI-RADS Cat 2 - Benign Findings Yearly screening mammography is recommended. Breast Density Category C, heterogeneously Dense. The mammogram demonstrates the patient's breast tissue is dense. Dense breast tissue is very common a nd is not abnormal but dense breast tissue can make it harder to find cancer on a mammogram. Also, de nse breast tissue may increase breast cancer risk. This information about the result of the mammogram report was provided to the patient to raise their awareness. Use this report when you speak with the patient about their risks for breast cancer, which includes their family history. At that time, you may recommend additional screening tests (Ultrasound or MRI) as they might be useful based on their r isk. A negative radiographic report should not delay biopsy if a dominant or clinically suspicious mass is present. Up to ten percent of cancers are not identified on mammography. A negative report may reinforce clinical impression. Adenosis and dense breasts may obscure an underlying neoplasm. False positive reports average 6 to 10%.
== END ==
PROVIDERS: PCP Family Medicine; Visit Provider Family Medicine
DX: Z12.31 Encounter for screening mammogram for malignant neoplasm of breast (principal); R92.1 Mammographic calcification found on diagnostic imaging of breast
CPT/HCPCS: 77063; 77067

== ENCOUNTER 2022-04-09 13:35 | Outpatient (REF) | payer MEDICARE, SELFPAY ==
[2022-04-09 16:24] LABS: Hemoglobin A1C 5.9 % (<5.7)
[2022-04-09 16:50] LABS: TSH (W/Ref FT4) 0.91 uIU/mL (0.36-3.74)
== END 2022-04-09 13:36 | disposition home or self-care (01) ==
LOC: NCHCN 13:35
PROVIDERS: PCP Family Medicine; Visit Provider Family Medicine
DX: I10 Essential (primary) hypertension (principal); E55.9 Vitamin D deficiency, unspecified; E66.8 Other obesity; R73.09 Other abnormal glucose
CPT/HCPCS: 82306; 83036; 84443

== ENCOUNTER 2022-12-23 00:22 | Emergency (ER) | payer MEDICARE, SELFPAY ==
[2022-12-23 00:32] VITALS: BP 132/91; PULSE 83; RESP 15; TEMP 36.7; O2SAT 99
--- NOTE | 2022-12-23 00:45 | DI.CT_ITS ---
Exam(s) CT ABDOMEN PELVIS WO EXAM: CT ABDOMEN PELVIS WO CLINICAL HISTORY: pain, vomiting, hx bowel resection. TECHNIQUE: Imaging Protocol: Axial computed tomography images with coronal and sagittal reformatted images were created and reviewed. Oral: / no COMPARISON: CT CT ABDOMEN WO/W from 07/30/2019 FINDINGS: ABDOMEN: Lung Bases: Normal where visualized. Liver: Normal density. Stable size of low-density lesions seen in the posterior right lobe liver fel t to represent a hemangioma on prior CT. Gallbladder and biliary tract: No radiodense calculus or dilation. Pancreas: Normal density, no abnormal calcifications or inflammatory process. Spleen: Normal. Kidneys: Normal size, contour and axis. No radiodense stones or obstructive uropathy. No masses seen. Adrenal glands: Stable appearance of 3 centimeter right adrenal adenoma. Lymph nodes: Multiple mildly enlarged lymph nodes in the left upper quadrant not seen on the prior ex am. The findings may be reactive or related to mesenteric adenitis. Abdominal Aorta: Abdominal portion non-dilated. PELVIS: Bladder: Symmetric distention, no gross wall thickening. Bowel: Right lower quadrant anastomosis. Mildly dilated fluid-filled small bowel in the right lower quadrant. No findings to suggest obstruction. Large quantity of stool. Peritoneal cavity: Small amount of fluid in the posterior pelvis. No focal collection. Reproductive organs: Within normal limits. Bones: Within normal limits. IMPRESSION: Mildly dilated small bowel could indicate enteritis. Mildly enlarged mesenteric lymph nodes could be reactive or related to mesenteric adenitis. No evidence of obstruction. RADIATION DOSE DELIVERED: 999.19mGy.cm Total DLP DATA REPOSITORY: All CT scans at this facility are submitted to the National Radiology Data Registry (NRDR) Dose Index Registry (DIR) with the [employer] (A[employer]). RADIATION OPTIMIZATION: All CT scans at this facility use at least one of these dose optimization te chniques: automated exposure control; mA and/or kV adjustment per patient size (includes targeted exa ms where dose is matched to clinical indication); or iterative reconstruction.
[2022-12-23 00:57] LABS: Abs Immature Grans 0.01 10^3/uL (0.0-0.06); Absolute Basophil Count 0.02 10^3/uL (0.0-0.2); Absolute Eosinophil Count 0.01 10^3/uL (0.0-0.7); Absolute Lymphocyte Count 0.52 10^3/uL (1.2-3.4); Absolute Monocyte Count 0.34 10^3/uL (0.1-0.8); Absolute Neutrophil Count 6.55 10^3/uL (1.2-6.7); Basophils % 0.3; Eosinophils % 0.1; HCT 41.8 % (36.0-46.0); HGB 14.2 g/dL (11.2-15.7); Immature Grans % 0.1; MCH 29.2 pg (27.0-33.0); MCV 86 fL (80-95); MPV 9.1 fL (8.0-11.0); Monocytes % 4.6; Neutrophils % 87.9; Platelet Count 139 10^3/uL (130-400); RBC 4.87 10^6/uL (3.93-5.22); RDW 13.2 % (11.7-14.6); RDW-SD 41.6 fL; WBC 7.45 10^3/uL (4.4-10.8)
[2022-12-23 01:13] LABS: ALT 16 U/L (14-59); AST 15 U/L (15-37); Albumin 3.4 g/dL (3.4-5.0); Alkaline Phosphatase 70 U/L (46-116); Anion Gap 7.5 mmol/L (3-11); BUN 17 mg/dL (7-18); Bilirubin, Total 0.4 mg/dL (0.2-1.0); CO2 28.5 mmol/L (21.0-32.0); Calcium 8.9 mg/dL (8.5-10.1); Chloride 99 mmol/L (98-107); Estimated GFR 60.23 (mL/min/1.73m2); Glucose 156 mg/dL (74-106); Magnesium 1.9 mg/dL (1.8-2.4); Potassium 3.4 mmol/L (3.5-5.1); Sodium 135 mmol/L (136-145); Total Protein 7.1 g/dL (6.4-8.2)
[2022-12-23] MEDS: Normal Saline 1,000 ML 1000 ML IV (01:23)
[2022-12-23 01:29] LABS: Troponin I < 50 ng/L (<or=60)
--- NOTE | 2022-12-23 01:44 | DI.VRAD_ITS ---
PROCEDURE INFORMATION: Exam: CT Abdomen And Pelvis Without Contrast Exam date and time: 12/23/2022 1:12 AM Age: 72 years old Clinical indication: Prior surgery; Surgery date: 6+ months; Surgery type: Bowel resection; Patient HX: Pain, vomiting TECHNIQUE: Imaging protocol: Computed tomography of the abdomen and pelvis without contrast. Radiation optimization: All CT scans at this facility use at least one of these dose optimization techniques: automated exposure control; mA and/or kV adjustment per patient size (includes targeted exams where dose is matched to clinical indication); or iterative reconstruction. COMPARISON: CT ABDOMEN WO/W 07/30/2019 8:07 AM FINDINGS: Lungs: The visualized lung bases are clear Liver: 4.5 x 4.9 cm hypodense lesion in the posterior segment of the right hepatic lobe was previously shown to be a hemangioma. This is unchanged. Gallbladder and bile ducts: No calcified stones. No ductal dilation. Pancreas: Unremarkable as visualized Spleen: Unremarkable as visualized Adrenal glands: 3.0 x 1.6 cm hypodense lesion in the right adrenal gland is unchanged and has Hounsfield units consistent with a benign adrenal adenoma. Kidneys and ureters: Unremarkable as visualized Stomach and bowel: Within the right pelvis, there is an anastomotic staple line within the small bowel with an adjacent focally dilated loop of small bowel. This is fluid-filled. There are multiple loops of nondilated fluid-filled loops of small bowel proximal to this anastomotic site. No bowel wall thickening. No pneumatosis. The ascending colon is not visualized. The rest of the colon is unremarkable. Appendix: No evidence of appendicitis. Intraperitoneal space: Small amount of free fluid in the cul-de-sac. Vasculature: Unremarkable. No abdominal aortic aneurysm. Lymph nodes: In the left upper abdominal quadrant, there are multiple scattered subcentimeter short axis lymph nodes with mild haziness in the mesentery. Urinary bladder: Unremarkable as visualized. Reproductive: Uterus is visualized without gross abnormalities. No adnexal masses. Bones/joints: Degenerative changes of the lumbar spine. No acute bone findings. Soft tissues: Unremarkable. IMPRESSION: 1. Postsurgical changes from right hemicolectomy with anastomotic site in the right lower pelvis. The focal dilatation of the bowel at the anastomotic site is likely postsurgical as there is no other evidence for obstruction. 2. Multiple nondilated fluid filled loops of small bowel is nonspecific but may be due to an enteritis. 3. Haziness of the mesentery in the left upper abdominal quadrant with associated nonpathologic lymph nodes may be reactive or due to a nonspecific mesenteritis. 4. Stable right hepatic lobe hemangioma. 5. Stable right adrenal adenoma Dictated and Authenticated by: Yazan Huang MD. Ordering:MIRIAN Watt MD
[2022-12-23 02:00] LABS: COVID-19 PCR Negative (Negative); Influenza A PCR Negative (Negative); Influenza B PCR Negative (Negative); RSV PCR Negative (Negative)
[2022-12-23 02:03] LABS: Bilirubin Negative (Negative); Blood Trace-intact (Negative); Clarity Clear (Clear); Glucose Negative (Negative); Ketones 15 mg/dL (Negative); Leukocyte Esterase Small (Negative); Nitrite Negative (Negative); Urobilinogen 0.2 mg/dL (Up to 0.2); pH 6.5 (5-8)
[2022-12-23 02:05] LABS: Source Nasopharynx
--- NOTE | 2022-12-23 02:13 | ED.GENADUL_ITS ---
Discharge Plan Disposition Patient Disposition: Home Condition: Improving Discharge Details Clinical Impression: Acute viral syndrome Primary Care Provider: Edelmira Lara ED Provider: Alysa Calzada Home Meds and New Rx's Prescriptions: Continued multivitamin [Daily Multi-Vitamin] 1 EACH tablet 1 ea PO DAILY Emergen-C 1,000 mg Powder Effervescent In Packet 1 mg PO DAILY cholecalciferol (vitamin D3) [Vitamin D3] 25 mcg (1,000 unit) Tablet,Chewable 1 unit PO DAILY Eliquis 5 mg tablet 5 mg PO BID Qty: 60 0RF Rx Instructions: 2 tabs twice daily for the first week then 1 tab twice daily until instructed to stop by primary care tramadol 50 mg tablet 50 mg PO Q6H PRNQty: 20 0RF sennosides-docusate sodium [Senna Plus] 8.6-50 mg tablet 1 tab-cap PO BID Qty: 60 3RF Discharge Instructions Instructions: Viral Syndrome (ED) Additional Instructions: Return home and rest. Push clear fluids and advance to bland diet as tolerated. Zofran 8 mg every 8 hours as needed for vomiting. Call your primary care doc this morning for follow-up check for Friday or Friday. Return to ED for belly pain localized to 1 area, fever of 100.4 or above, inability to anything down, any other concerns. Medical Decision Making Patient had no nausea or vomiting in the ED. She continued to look nontoxic. Discussed with pt. what to come back for including localized pain to one area, belly distention, protracted and uncontrolled vomiting, fever of 100.4 or above. The patient was sent home with oral Zofran to take as needed. She will stick with clear fluids and bland diet, advancing as tolerated. She had a recheck with her primary care doc on Friday. Imaging Data Radiologic Study: Imaging: CT Scan Radiologist's impression: CT abdomen and pelvis: Patient Name: Sharon Simmons Unit #: [id number] Loc: ER ? Ordering Provider:? Status: REG ER ? Primary Care Provider: Edelmira Lara Date of Exam: 12/23/22 Sex: F ? : 1950 Age: 72 ? Exam(s) PROCEDURE INFORMATION: Exam: CT Abdomen And Pelvis Without Contrast Exam date and time: 12/23/2022 1:12 AM Age: 72 years old Clinical indication: Prior surgery; Surgery date: 6+ months; Surgery type: Bowel resection; Patient HX: Pain, vomiting TECHNIQUE: Imaging protocol: Computed tomography of the abdomen and pelvis without contrast. Radiation optimization: All CT scans at this facility use at least one of these dose optimization techniques: automated exposure control; mA and/or kV adjustment per patient size (includes targeted exams where dose is matched to clinical indication); or iterative reconstruction. COMPARISON: CT ABDOMEN WO/W 07/30/2019 8:07 AM FINDINGS: Lungs: The visualized lung bases are clear Liver: 4.5 x 4.9 cm hypodense lesion in the posterior segment of the right hepatic lobe was previously shown to be a hemangioma. This is unchanged. Gallbladder and bile ducts: No calcified stones. No ductal dilation. Pancreas: Unremarkable as visualized Spleen: Unremarkable as visualized Adrenal glands: 3.0 x 1.6 cm hypodense lesion in the right adrenal gland is unchanged and has Hounsfield units consistent with a benign adrenal adenoma. Kidneys and ureters: Unremarkable as visualized Stomach and bowel: Within the right pelvis, there is an anastomotic staple line within the small bowel with an adjacent focally dilated loop of small bowel. This is fluid-filled. There are multiple loops of nondilated fluid-filled loops of small bowel proximal to this anastomotic site. No bowel wall thickening. No pneumatosis. The ascending colon is not visualized. The rest of the colon is unremarkable. Appendix: No evidence of appendicitis. Intraperitoneal space: Small amount of free fluid in the cul-de-sac. Vasculature: Unremarkable. No abdominal aortic aneurysm. Lymph nodes: In the left upper abdominal quadrant, there are multiple scattered subcentimeter short axis lymph nodes with mild haziness in the mesentery. Urinary bladder: Unremarkable as visualized. Reproductive: Uterus is visualized without gross abnormalities. No adnexal masses. Bones/joints: Degenerative changes of the lumbar spine. No acute bone findings. Soft tissues: Unremarkable. IMPRESSION: 1. ? Postsurgical changes from right hemicolectomy with anastomotic site in the right lower pelvis. The focal dilatation of the bowel at the anastomotic site is likely postsurgical as there is no other evidence for obstruction. 2. ? Multiple nondilated fluid filled loops of small bowel is nonspecific but may be due to an enteritis. 3. ? Haziness of the mesentery in the left upper abdominal quadrant with associated nonpathologic lymph nodes may be reactive or due to a nonspecific mesenteritis. 4. ? Stable right hepatic lobe hemangioma. 5. ? Stable right adrenal adenoma Dictated and Authenticated by: Yazan Huang MD. Ordering:MIRIAN Watt MD Lab Data Lab results reviewed: Yes I reviewed the patient's lab results. Lab results narrative: Covid/flu/rsv NEG. unremarkable labs. ECG Data Attestation: I personally reviewed and interpreted this ECG (s) as follows: (NSR 60, LAD, otherwise nl intervals and EKG) HPI General Date/Time Provider Initiated Documentation: 12/23/22 00:46 . HPI Narrative: This 72-year-old female patient presents with multiple complaints. Patient reports that she had indigestion in her lower abdomen beginning about a week ago. I asked her more about that she says it was gas-like. It would be relieved when she passed gas. 2 days ago she began having hot and cold chills but no rigors. She did have diffuse aches and headache. She felt nauseous but did not vomit until tonight when she vomited x3. She denies fever or URI symptoms. She has had no chest pain. The only belly pain she has is a right- sided. She says she had a minor lower back ache earlier. 2 nights ago she says she was up peeing all night long but has had no burning or urgency. There is been no frequency since June. The patient does report history of a small bowel obstruction that actually required resection years ago. She is on Eliquis for DVT and PE. Her last bowel movement was 2 days ago; she does report that she has been moving her bowels on a daily basis for the past 2 months she has been very careful about fiber intake. Related Data Home Medications Medication Instructions Recorded Confirmed multivitamin (Daily Multi-Vitamin 1 ea PO DAILY 07/06/15 12/23/22 tablet) apixaban 5 mg tablet (Eliquis) 5 mg PO BID #60 tabs 06/28/19 12/23/22 ascorbic acid 1,000 1 mg PO DAILY 06/28/19 12/23/22 no-klrrcbrayiht-kxggnsvy powder effervescent pack (Emergen-C) cholecalciferol (vitamin D3) 25 1 unit PO DAILY 06/28/19 12/23/22 mcg (1,000 unit) chewable tablet (Vitamin D3) sennosides 8.6 mg-docusate sodium 1 tab-cap PO BID #60 tabs 07/21/19 12/23/22 50 mg tablet (Senna Plus) tramadol 50 mg tablet 50 mg PO Q6H PRN #20 tabs 07/21/19 12/23/22 Previous Rx's Medication Instructions Recorded apixaban 5 mg tablet (Eliquis) 5 mg PO BID #60 tabs 06/28/19 sennosides 8.6 mg-docusate sodium 1 tab-cap PO BID #60 tabs 07/21/19 50 mg tablet (Senna Plus) tramadol 50 mg tablet 50 mg PO Q6H PRN #20 tabs 07/21/19 Allergies Allergy/AdvReac Type Severity Reaction Status Date / Time No Known Allergies Allergy Unverified 07/26/19 13:19 General Stated Complaint: Nausea/Vomit/Diar INDIRA: 3 Review of Systems Constitutional Constitutional: Reports chills (but no rigors), Denies fever(s), Reports headach e(s) and Denies weakness Eyes Eyes: Denies diplopia and Reports other (no redness) ENT Ears, Nose, Mouth, and Throat: Denies otalgia, Reports headache(s), Denies nasal congestion, Denies nasal discharge, Denies neck pain and Denies sore throat Cardiovascular Cardiovascular: Denies chest pain, Denies palpitations and Denies dyspnea Respiratory Respiratory: Denies cough and Denies dyspnea Gastrointestinal Gastrointestinal: Reports abdominal pain, Denies diarrhea, Reports nausea and Reports vomiting Genitourinary Genitourinary: Denies dysuria Comments: had frequency 2 nights ago but no sxs since then Musculoskeletal Musculoskeletal: Reports myalgias, Denies muscle weakness, Denies neck pain, Denies numbness and Reports other (edema) Integumentary/Breasts Skin/Breast: Denies change in pigmentation and Denies rash Neurologic Neurologic: Reports headache(s), Denies numbness and Denies weakness Comments: no stiff neck Endocrine Endocrine: Denies palpitations PFSH All Active Problems (Updated 12/23/22 @ 02:25 by Alysa Calzada MD) Acute viral syndrome (Acute) S/P small bowel resection (Acute) Liver lesion (Acute) Left knee DJD (Chronic) Medical History (Updated 12/23/22 @ 02:25 by Alysa Calzada MD) Acute deep vein thrombosis (DVT) of left lower extremity Femur fracture, right Pulmonary embolism Small bowel obstruction Surgical History (Updated 07/21/19 @ 08:00 by Tamika Slade MD) 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 Right TKA done September 2011 - [facility] [place] Family History Mother DVT (deep venous thrombosis) Sister MTHFR gene mutation Social History Smoking/Tobacco Use Status: Never Smoking risk assessment performed?: Yes Alcohol Intake: never Drug use: Never Substance use type: does not use Do you feel safe at home: Yes Do you feel safe in your relationship?: Yes Exam Const General: no acute distress, well developed, well groomed and not in acute d istress Nutritional Appearance: well nourished Orientation: alert and oriented x3 HENMT Head: normocephalic and atraumatic Ears: external ears normal Mouth: oropharynx normal and moist mucous membranes Throat: posterior oropharynx normal Eyes Conjunctivae: conjunctivae normal Neck Neck: full ROM and supple Chest Chest: normal inspection of the chest Resp Effort & Inspection: normal respiratory effort Auscultation: clear to auscultation bilaterally Cardio Rate: regular rate Rhythm: regular rhythm Heart Sounds: no murmurs and no rubs GI Inspection: normal to inspection Palpation: soft, tender (mild R sided TTP, no GR) and other (non distended) Auscultation: normal bowel sounds Skin General skin exam: no rashes or lesions noted and other (pink, warm, dry) Neuro General: patient alert, patient awake and patient oriented x3 Speech: speech normal Motor: other (LEWIS) Sensory Exam: no sensory deficits noted Extrem General: normal to inspection, full ROM and pedal edema present Psych Mental Status: mental status grossly normal Speech and Movement: speech and movement normal Affect: normal affect Course Vital Signs Vital signs: Vital Signs Temperature 36.7 C 12/23/22 00:32 Pulse 83 12/23/22 00:32 Respiratory Rate 15 12/23/22 00:32 Blood Pressure 132/91 H 12/23/22 00:32 Pulse Oximetry 99 12/23/22 00:32 Temperature 36.7 C 12/23/22 00:32 Temperature Source Oral 12/23/22 00:32 Pulse 83 12/23/22 00:32 Respiratory Rate 15 12/23/22 00:32 Respiratory Effort Normal 12/23/22 00:38 Blood Pressure 132/91 H 12/23/22 00:32 Blood Pressure Position Sitting 12/23/22 00:32 Pulse Oximetry 99 12/23/22 00:32 Oxygen Delivery Method Room Air 12/23/22 00:32 Oxygen Flow Rate 0 12/23/22 00:32 Lab/Test Results Lab/Test Results: Laboratory Tests Range/Units 12/23/22 12/23/22 12/23/22 00:50 00:50 00:50 WBC (4.4-10.8) 10^3/uL 7.45 RBC (3.93-5.22) 10^6/uL 4.87 Hgb (11.2-15.7) g/dL 14.2 Hct (36.0-46.0) % 41.8 MCV (80-95) fL 86 MCH (27.0-33.0) pg 29.2 MCHC (32.0-36.0) % 34.0 RDW (11.7-14.6) % 13.2 Plt Count (130-400) 10^3/uL 139 MPV (8.0-11.0) fL 9.1 Immature Gran % 0.1 Neutrophils % 87.9 Lymphocytes % 7.0 Monocytes % 4.6 Eosinophils % 0.1 Basophils % 0.3 Nucleated RBC % (0.0-0.3) % 0.0 Absolute Neutrophils (1.2-6.7) 10^3/uL 6.55 Absolute Lymphocytes (1.2-3.4) 10^3/uL 0.52 L Absolute Monocytes (0.1-0.8) 10^3/uL 0.34 Absolute Eosinophils (0.0-0.7) 10^3/uL 0.01 Absolute Basophils (0.0-0.2) 10^3/uL 0.02 Sodium (136-145) mmol/L 135 L Potassium (3.5-5.1) mmol/L 3.4 L Chloride (98-107) mmol/L 99 Carbon Dioxide (21.0-32.0) mmol/L 28.5 Anion Gap (3-11) mmol/L 7.5 BUN (7-18) mg/dL 17 Creatinine (0.55-1.02) mg/dL 1.0 Est GFR (CKD-EPI 2020) (mL/min/1.73m2) 60.23 Glucose (74-106) mg/dL 156 H Calcium (8.5-10.1) mg/dL 8.9 Magnesium (1.8-2.4) mg/dL 1.9 Total Bilirubin (0.2-1.0) mg/dL 0.4 AST (15-37) U/L 15 ALT (14-59) U/L 16 Alkaline Phosphatase (46-116) U/L 70 Troponin I (<or=60) ng/L < 50 Total Protein (6.4-8.2) g/dL 7.1 Albumin (3.4-5.0) g/dL 3.4 COVID-19 Source SARS-CoV-2 (PCR) (Negative) Influenza Type A (PCR) (Negative) Influenza Type B (PCR) (Negative) RSV (PCR) (Negative) Range/Units 12/23/22 01:20 WBC (4.4-10.8) 10^3/uL RBC (3.93-5.22) 10^6/uL Hgb (11.2-15.7) g/dL Hct (36.0-46.0) % MCV (80-95) fL MCH (27.0-33.0) pg MCHC (32.0-36.0) % RDW (11.7-14.6) % Plt Count (130-400) 10^3/uL MPV (8.0-11.0) fL Immature Gran % Neutrophils % Lymphocytes % Monocytes % Eosinophils % Basophils % Nucleated RBC % (0.0-0.3) % Absolute Neutrophils (1.2-6.7) 10^3/uL Absolute Lymphocytes (1.2-3.4) 10^3/uL Absolute Monocytes (0.1-0.8) 10^3/uL Absolute Eosinophils (0.0-0.7) 10^3/uL Absolute Basophils (0.0-0.2) 10^3/uL Sodium (136-145) mmol/L Potassium (3.5-5.1) mmol/L Chloride (98-107) mmol/L Carbon Dioxide (21.0-32.0) mmol/L Anion Gap (3-11) mmol/L BUN (7-18) mg/dL Creatinine (0.55-1.02) mg/dL Est GFR (CKD-EPI 2020) (mL/min/1.73m2) Glucose (74-106) mg/dL Calcium (8.5-10.1) mg/dL Magnesium (1.8-2.4) mg/dL Total Bilirubin (0.2-1.0) mg/dL AST (15-37) U/L ALT (14-59) U/L Alkaline Phosphatase (46-116) U/L Troponin I (<or=60) ng/L Total Protein (6.4-8.2) g/dL Albumin (3.4-5.0) g/dL COVID-19 Source Nasopharynx SARS-CoV-2 (PCR) (Negative) Negative Influenza Type A (PCR) (Negative) Negative Influenza Type B (PCR) (Negative) Negative RSV (PCR) (Negative) Negative
[2022-12-23 02:16] LABS: Bacteria Few HPF (Negative); C & S Indicated? Yes; Crystals Negative HPF (Negative); Epithelial Cells Few HPF (Negative); Mucus Trace (Negative)
[2022-12-23] MEDS: Ondansetron O.D.T. 4 MG TABEF 24 MG PO (02:31)
[2022-12-23 03:08] VITALS: BP 147/69; PULSE 67; RESP 14; O2SAT 98
--- NOTE | 2022-12-23 07:09 | NUR.NOTE ---
Accessed pt chart to determine EKG orders. Order was cancelled due to no EKG done. Nursing Note:
--- NOTE | 2022-12-23 08:15 | RT.EKG_ITS ---
APPROVED REPORT Exam: Resting ECG Reason for Exam: abd pain, weakness Patient Location: E HR:61 bpm ECG Measurements Heart Rate 61 AXIS AL 187 P 32 QRSd 96 QRS -45 QT 413 T 69 QTc 416 Conclusion Sinus rhythm...normal P axis, V-rate 60- 99 Left axis deviation...QRS axis (-30,-90)
== END 2022-12-23 03:14 | disposition home or self-care (01) ==
PROVIDERS: Emergency Provider Emergency Medicine; PCP Family Medicine
DX: B34.9 Viral infection, unspecified (principal); R14.0 Abdominal distension (gaseous); R10.9 Unspecified abdominal pain; R11.2 Nausea with vomiting, unspecified; R50.9 Fever, unspecified; R53.1 Weakness; Z87.19 Personal history of other diseases of the digestive system
CPT/HCPCS: 80053; 87426; 87637; 93005; 96360; 99285; 74176; 81003; 81015; 83735; 84484; 85025; 87086; 93010; 99284

== ENCOUNTER 2023-01-07 11:57 | Outpatient (REF) | payer MEDICARE, SELFPAY | END 2023-01-07 11:58 | disposition home or self-care (01) | LOC: NCHCN 11:57 | PROVIDERS: PCP Family Medicine; Visit Provider Nurse Practitioner Family | DX: R31.21 Asymptomatic microscopic hematuria (principal) | CPT/HCPCS: 87077; 87086; 87186 ==

== ENCOUNTER 2023-01-23 21:23 | Outpatient (REF) | payer MEDICARE, SELFPAY ==
[2023-01-23 21:39] LABS: Bilirubin Negative (Negative); Blood Small (Negative); Clarity Clear (Clear); Glucose Negative (Negative); Ketones Negative (Negative); Leukocyte Esterase Trace (Negative); Nitrite Negative (Negative); Specific Gravity 1.015 (1.005-1.025); Urobilinogen 0.2 mg/dL (Up to 0.2)
[2023-01-23 21:46] LABS: Bacteria Few HPF (Negative); C & S Indicated? C&S Done As Ordered; Casts Negative LPF (Negative); Crystals Negative HPF (Negative); Epithelial Cells Rare HPF (Negative); Mucus Negative (Negative)
== END 2023-01-23 21:24 | disposition home or self-care (01) ==
LOC: NCHCN 21:23
PROVIDERS: PCP Family Medicine; Visit Provider Nurse Practitioner Family
DX: R31.21 Asymptomatic microscopic hematuria (principal)
CPT/HCPCS: 81003; 81015; 87086

== ENCOUNTER → 2023-03-05 02:41 | Outpatient (CLI) | payer MEDICARE, SELFPAY ==
--- NOTE | 2023-03-05 | DI.MAMMO_ITS ---
Exam(s) MAMMO SCREENING EXAM: MAMMO SCREENING CLINICAL HISTORY: SCREENING,Z12.31,[facility],Z00.00 TECHNIQUE: Bilateral full field digital CC and MLO mammographic images were obtained with 3D tomosyn thesis and utilizing computer aided detection (CAD). COMPARISON: Available for comparison. FINDINGS: Masses/Architectural Distortion: The patient has had a prior left breast biopsy. No suspicious nodul es or new areas of architectural distortion are seen. Microcalcifications: No suspicious pleomorphic-type are seen. Stable calcifications are seen in both breasts. Skin Thickening/Nipple Retraction: None. IMPRESSION: 1. No significant interval change with no specific features of malignancy noted. 2. Unless there is more urgent need, screening mammography is recommended, as per [employer] guidelines. BI-RADS Category 2 - Benign Findings Breast Density - Category C - Heterogeneously dense Breast density category C or D implies that the patient has dense breast tissue. Dense breast tissue is very common and is not abnormal but dense breast tissue can make it harder to find cancer on a ma mmogram. Also, dense breast tissue may increase their breast cancer risk. This information about the result of the mammogram report was provided to the patient to raise their awareness. Use this report when you speak with the patient about their risks for breast cancer, which includes their family hist ory. At that time, you may recommend for more screening tests (Ultrasound or MRI) as they might be us eful based on their risk. A negative radiographic report should not delay biopsy if a dominant or clinically suspicious mass is present. Up to ten percent of cancers are not identified on mammography. A negative report may reinforce clinical impression. Adenosis and dense breasts may obscure an underlying neoplasm. False positive reports average 6 to 10%. Patient will receive a letter notifying them of these results.
== END ==
PROVIDERS: PCP Nurse Practitioner Family; Visit Provider Nurse Practitioner Family
DX: Z12.31 Encounter for screening mammogram for malignant neoplasm of breast (principal)
CPT/HCPCS: 77063; 77067